=== PATIENT | female | born 1950 | race Caucasian/White ===

== ENCOUNTER 2017-11-24 09:52 | Inpatient (IN) | payer MEDICARE ==
[~2017-11-24] VITALS: Ht 149.9 cm; Wt 71.5 kg
[2017-11-24 09:54] VITALS: BP 106/68; PULSE 115; RESP 20; TEMP 98.3; O2SAT 98
[2017-11-24] MEDS ORDERED: ASPI-516 CHEW (10:29)
[2017-11-24 10:36] VITALS: BP 128/65; PULSE 112; RESP 18; O2SAT 96
[2017-11-24 10:38] VITALS: RESP 18; O2SAT 96
--- NOTE | 2017-11-24 10:41 | PD ---
HPI Chief Complaint: GI Complaint Time Seen by Provider: 10:15 Travel History International Travel<30 days: No Contact w/Intl Traveler<30days: No Traveled to known affect area: No History of Present Illness HPI The patient is a 67-year-old female who presents emergency department for abdominal pain and distention. The patient notes increasing abdominal pain and distention has been ongoing for several months, worse in the last 3 weeks. The patient saw her primary physician in [place] who is going to perform an outpatient ultrasound. However, the patient then went to [place] to have her power turned back on, her symptoms got worse, she flew to [place], [place]. She complains of increasing abdominal pain and distention, has been moving her bowels normally. She denies any known history of liver problem, states she had hepatitis as a child that resolved. She denies any known history of anasarca or previous effusions on the abdomen. She denies any swelling of the arms or legs. She denies any fever, chills, or sweats. The patient has had a previous cholecystectomy and part of her cervix removed as well as a lung surgery to remove a nodule that was noncancerous. She does complain of mild nausea and decreased appetite, does have a history of hiatal hernia. She does not have a local primary physician. [facility] Past Medical History Narrative Medical Lung nodule, history of hiatal hernia Respiratory: Yes ?: Not Past Surgical History Narrative Surgical Cholecystectomy Social History Alcohol Use: No Tobacco Use: No Substance Use: No Allergies-Medications (Allergen,Severity, Reaction): Coded Allergies: No Known Allergies (Unverified , 11/24/17) Reported Meds & Prescriptions Reported Meds & Active Scripts Active Reported Aspirin 81 Mg Chew 81 Mg CHEW DAILY Review of Systems Except as stated in HPI: all other systems reviewed are Neg General / Constitutional: No: Fever, Chills Cardiovascular: No: Chest Pain or Discomfort Respiratory: No: Shortness of Breath Gastrointestinal: Positive: Nausea, Abdominal Pain, Loss of Appetite, No: Vomiting, Diarrhea Physical Exam Narrative GENERAL: Awake, alert, pleasant 67-year-old female who appears her stated age is in no acute respiratory distress. SKIN: Focused skin assessment warm/dry. HEAD: Atraumatic. Normocephalic. EYES: Pupils equal and round. No scleral icterus. No injection or drainage. ENT: No nasal bleeding or discharge. Mucous membranes pink and moist. NECK: Trachea midline. No JVD. CARDIOVASCULAR: Regular rate and rhythm. No murmur appreciated. RESPIRATORY: No accessory muscle use. Clear to auscultation. Breath sounds equal bilaterally. GASTROINTESTINAL: Abdomen distended with visible abdominal veins noted. Slightly enlarged right liver border. MUSCULOSKELETAL: No obvious deformities. No clubbing. No cyanosis. No edema. NEUROLOGICAL: Awake and alert. No obvious cranial nerve deficits. Motor grossly within normal limits. Normal speech. PSYCHIATRIC: Appropriate mood and affect; insight and judgment normal. Data Data Last Documented VS Vital Signs Date Time Temp Pulse Resp B/P (MAP) Pulse Ox O2 Delivery O2 Flow Rate FiO2 11/24/17 12:38 113 18 111/59 (76) 96 Room Air 11/24/17 09:54 98.3 Orders Orders Complete Blood Count With Diff (11/24/17 10:31) Comprehensive Metabolic Panel (11/24/17 10:31) Lipase (11/24/17 10:31) Lactic Acid (11/24/17 10:31) Prothrombin Time / Inr (Pt) (11/24/17 10:31) Act Partial Throm Time (Ptt) (11/24/17 10:31) Urinalysis - C+S If Indicated (11/24/17 10:31) Ct Abd/Pel W/O Iv Contrast (11/24/17 10:31) Iv Access Insert/Monitor (11/24/17 10:31) Ecg Monitoring (11/24/17 10:31) Oximetry (11/24/17 10:31) Sodium Chloride 0.9% Flush (Ns Flush) (11/24/17 10:45) Chest, Single Ap (11/24/17 10:31) Morphine Inj (Morphine Inj) (11/24/17 12:45) Ondansetron Inj (Zofran Inj) (11/24/17 12:45) Sodium Chlor 0.9% 1000 Ml Inj (Ns 1000 M (11/24/17 12:45) (Hub Use Only)Inp Phy Cons/Ref (11/24/17 ) Admit Order (Ed Use Only) (11/24/17 12:52) Labs Laboratory Tests Test 11/24/17 10:45 White Blood Count 14.6 TH/MM3 Red Blood Count 4.16 MIL/MM3 Hemoglobin 12.8 GM/DL Hematocrit 36.9 % Mean Corpuscular Volume 88.7 FL Mean Corpuscular Hemoglobin 30.6 PG Mean Corpuscular Hemoglobin Concent 34.6 % Red Cell Distribution Width 12.6 % Platelet Count 588 TH/MM3 Mean Platelet Volume 7.3 FL Neutrophils (%) (Auto) 81.1 % Lymphocytes (%) (Auto) 8.8 % Monocytes (%) (Auto) 9.6 % Eosinophils (%) (Auto) 0.2 % Basophils (%) (Auto) 0.3 % Neutrophils # (Auto) 11.8 TH/MM3 Lymphocytes # (Auto) 1.3 TH/MM3 Monocytes # (Auto) 1.4 TH/MM3 Eosinophils # (Auto) 0.0 TH/MM3 Basophils # (Auto) 0.0 TH/MM3 CBC Comment DIFF FINAL Differential Comment Blood Urea Nitrogen 44 MG/DL Creatinine 2.55 MG/DL Random Glucose 120 MG/DL Total Protein 6.3 GM/DL Albumin 2.3 GM/DL Calcium Level 8.3 MG/DL Alkaline Phosphatase 101 U/L Aspartate Amino Transf (AST/SGOT) 84 U/L Alanine Aminotransferase (ALT/SGPT) 57 U/L Total Bilirubin 0.4 MG/DL Sodium Level 135 MEQ/L Potassium Level 4.6 MEQ/L Chloride Level 101 MEQ/L Carbon Dioxide Level 22.2 MEQ/L Anion Gap 12 MEQ/L Estimat Glomerular Filtration Rate 19 ML/MIN Lactic Acid Level 1.2 mmol/L Lipase 83 U/L MDM Medical Decision Making Medical Screen Exam Complete: Yes Emergency Medical Condition: Yes Medical Record Reviewed: Yes Interpretation(s) Last Impressions Chest X-Ray 11/24/17 1031 Signed Impressions: Service Date/Time: Friday, November 24, 2017 10:41 - CONCLUSION: Blunting of the right costophrenic angle either related to a tiny effusion or pleural/parenchymal scarring. No acute infiltrate. Cody Doyle Jr., MD Abdomen/Pelvis CT 11/24/17 1031 Signed Impressions: Service Date/Time: Friday, November 24, 2017 11:03 - CONCLUSION: 1. Findings worrisome for metastatic pancreatic cancer. There is limited evaluation due to lack of IV contrast on this exam. The patient needs an anatomical study with IV contrast utilizing CT technique or MRI. There is an approximate 4 cm mass felt present within the pancreatic body/tail with metastatic lesions to the liver and carcinomatosis. Moderate amount of ascites noted. Cody Doyle Jr., MD Laboratory Tests Test 11/24/17 10:45 White Blood Count 14.6 TH/MM3 Red Blood Count 4.16 MIL/MM3 Hemoglobin 12.8 GM/DL Hematocrit 36.9 % Mean Corpuscular Volume 88.7 FL Mean Corpuscular Hemoglobin 30.6 PG Mean Corpuscular Hemoglobin Concent 34.6 % Red Cell Distribution Width 12.6 % Platelet Count 588 TH/MM3 Mean Platelet Volume 7.3 FL Neutrophils (%) (Auto) 81.1 % Lymphocytes (%) (Auto) 8.8 % Monocytes (%) (Auto) 9.6 % Eosinophils (%) (Auto) 0.2 % Basophils (%) (Auto) 0.3 % Neutrophils # (Auto) 11.8 TH/MM3 Lymphocytes # (Auto) 1.3 TH/MM3 Monocytes # (Auto) 1.4 TH/MM3 Eosinophils # (Auto) 0.0 TH/MM3 Basophils # (Auto) 0.0 TH/MM3 CBC Comment DIFF FINAL Differential Comment Blood Urea Nitrogen 44 MG/DL Creatinine 2.55 MG/DL Random Glucose 120 MG/DL Total Protein 6.3 GM/DL Albumin 2.3 GM/DL Calcium Level 8.3 MG/DL Alkaline Phosphatase 101 U/L Aspartate Amino Transf (AST/SGOT) 84 U/L Alanine Aminotransferase (ALT/SGPT) 57 U/L Total Bilirubin 0.4 MG/DL Sodium Level 135 MEQ/L Potassium Level 4.6 MEQ/L Chloride Level 101 MEQ/L Carbon Dioxide Level 22.2 MEQ/L Anion Gap 12 MEQ/L Estimat Glomerular Filtration Rate 19 ML/MIN Lactic Acid Level 1.2 mmol/L Lipase 83 U/L Differential Diagnosis Differential diagnosis includes anasarca, liver failure, ascites, hepatitis, small bowel obstruction, partial small bowel obstruction. Narrative Course IV was established, labs are drawn and sent, and the patient was placed on cardiac telemetry monitoring and continuous pulse oximetry monitoring. CT of the abdomen and pelvis was performed. The patient declined pain medication. Albumin level was sent to lab. CT of the abdomen and pelvis reveals what appears to be a pancreatic mass with metastasis. The patient's creatinine is 2.55 she does not know the baseline. The patient does have some ascites with possible metastatic cancer, distended abdomen, and poor nutritional intake. The patient will require admission, most likely will need repeat CT of the abdomen and pelvis with IV contrast and then possible biopsy with IV hydration. The on-call medical service was paged for admission. Physician Communication Physician Communication The on-call hospitalist service was paged for admission. I discussed the patient with Dr. Michelle who agrees with admission. Diagnosis Primary Impression: Abdominal pain Qualified Codes: R10.84 - Generalized abdominal pain Additional Impressions: Ascites Qualified Codes: R18.0 - Malignant ascites Acute kidney injury Admitting Information Admitting Physician Requests: Admit Condition: Stable Moises Medina MD Nov 24, 2017 10:41
[2017-11-24] MEDS ORDERED: SODIUM CHLORIDE 0.9% FLUSH 10 ML FLUSH IV FLUSH PRN ×2 (10:45→13:00)
--- NOTE | 2017-11-24 11:00 | RADRPT ---
EXAM DATE/TIME: 11/24/2017 10:41 [facility] COMPARISON: No previous studies available for comparison. INDICATIONS : Short of breath, discomfort in chest and abdomen. Entire abdomen has been swollen and distended for s everal weeks making it difficult to breath MEDICAL HISTORY : None. SURGICAL HISTORY : benign nodule removed from right lung in 2011 ENCOUNTER: Initial ACUITY: 3 weeks PAIN SCORE: 7/10 LOCATION: Bilateral chest FINDINGS: A single portable frontal view the chest shows blunting of the right costophrenic angle. No infiltrat es or effusions on the left. No infiltrate on the right. Heart normal size. The degenerative thoracic spine. Cervical spinal fusion plate. CONCLUSION: Blunting of the right costophrenic angle either related to a tiny effusion or pleural/parenchymal sca rring. No acute infiltrate. Cody Doyle Jr., MD on November 24, 2017 at 10:57 Board Certified Radiologist. This report was verified electronically.
[2017-11-24 11:04] LABS: AUTOMATED NEUTROPHIL # 11.8 TH/MM3 (1.8-7.7); BASOPHIL % 0.3 % (0.0-2.0); EOSINOPHIL % 0.2 % (0.0-4.0); HEMATOCRIT 36.9 % (35.0-46.0); HEMOGLOBIN 12.8 GM/DL (11.6-15.3); LYMPH % 8.8 % (9.0-44.0); LYMPHOCYTE # 1.3 TH/MM3 (1.0-4.8); MEAN CELL VOLUME 88.7 FL (80.0-100.0); MEAN CORPUSCULAR HEMOGLOBIN 30.6 PG (27.0-34.0); MEAN CORPUSCULAR HGB CONC 34.6 % (32.0-36.0); MEAN PLATELET VOLUME 7.3 FL (7.0-11.0); MONO % 9.6 % (0.0-8.0); MONOCYTE # 1.4 TH/MM3 (0-0.9); NEUT % 81.1 % (16.0-70.0); PLATELET COUNT 588 TH/MM3 (150-450); RED BLOOD COUNT 4.16 MIL/MM3 (4.00-5.30); RED CELL DISTRIBUTION WIDTH 12.6 % (11.6-17.2); WHITE BLOOD COUNT 14.6 TH/MM3 (4.0-11.0)
[2017-11-24 11:24] LABS: ALBUMIN 2.3 GM/DL (3.4-5.0); ALT (GPT) 57 U/L (10-53); AST (GOT) 84 U/L (15-37); BICARBONATE 22.2 MEQ/L (21.0-32.0); BLOOD UREA NITROGEN 44 MG/DL (7-18); CALCIUM 8.3 MG/DL (8.5-10.1); CHLORIDE 101 MEQ/L (98-107); CREATININE 2.55 MG/DL (0.50-1.00); GLOMERULAR FILTRATION RATE 19 ML/MIN (>89); GLUCOSE,RANDOM 120 MG/DL (74-106); SODIUM (NA) 135 MEQ/L (136-145)
[2017-11-24 11:27] LABS: ALKALINE PHOSPHATASE 101 U/L (45-117); TOTAL BILIRUBIN ADULT 0.4 MG/DL (0.2-1.0); TOTAL PROTEIN 6.3 GM/DL (6.4-8.2)
--- NOTE | 2017-11-24 11:27 | RADRPT ---
EXAM DATE/TIME: 11/24/2017 11:03 [facility] COMPARISON: No previous studies available for comparison. INDICATIONS : Abdominal pain with increasing distention. ORAL CONTRAST: No oral contrast ingested. RADIATION DOSE: 7.64 CTDIvol (mGy) MEDICAL HISTORY : None SURGICAL HISTORY : Cholecystectomy. ENCOUNTER: Initial ACUITY: 2 months PAIN SCALE: 6/10 LOCATION: Bilateral abdomen TECHNIQUE: Volumetric scanning of the abdomen and pelvis was performed. Using automated exposure control and ad justment of the mA and/or kV according to patient size, radiation dose was kept as low as reasonably achievable to obtain optimal diagnostic quality images. DICOM format image data is available electro nically for review and comparison. FINDINGS: LOWER LUNGS: Postsurgical changes involving the right lung base. Lungs are clear without infiltrate or effusion. LIVER: The liver has a heterogeneous background. Multiple low-density lesions are seen involving the right l obe. The largest involves segment 7 and measures 2.6 cm. These are not consistent with simple cysts. The gallbladder surgically absent. SPLEEN: Normal size without lesion. PANCREAS: The pancreas is abnormal. There is dilatation of the peripheral duct reaching a maximum diameter of 1 cm. This quickly tapers within the region of the junction of the body and tail with a suspected mass measuring 4.3 x 2.7 cm. This is difficult to accurately measure given its isodensity to the pancreas on this unenhanced study. KIDNEYS: Normal in size and shape. There is no mass, stone, or hydronephrosis. ADRENAL GLANDS: Within normal limits. VASCULAR: Diffuse calcified plaque throughout the aorta and inflow vessels. No aneurysmal change observed. BOWEL/MESENTERY: Markedly abnormal omentum with scattered areas of high density suggesting carcinomatosis. There is mo derate ascitic fluid seen throughout the abdomen. No dilated loops of bowel observed. No free air see n. ABDOMINAL WALL: Within normal limits. RETROPERITONEUM: There is no lymphadenopathy. BLADDER: No wall thickening or mass. REPRODUCTIVE: Within normal limits. INGUINAL: There is no lymphadenopathy or hernia. MUSCULOSKELETAL: Orthopedic hardware involving L4-L5 with posterior fixation. No lytic or blastic lesions observed. CONCLUSION: 1. Findings worrisome for metastatic pancreatic cancer. There is limited evaluation due to lack of IV contrast on this exam. The patient needs an anatomical study with IV contrast utilizing CT technique or MRI. There is an approximate 4 cm mass felt present within the pancreatic body/tail with metastat ic lesions to the liver and carcinomatosis. Moderate amount of ascites noted. Cody Doyle Jr., MD on November 24, 2017 at 11:18 Board Certified Radiologist. This report was verified electronically.
[2017-11-24 12:38] VITALS: BP 111/59; PULSE 113; RESP 18; O2SAT 96
[2017-11-24] MEDS ORDERED: ONDANSETRON HCL 4 MG/2 ML VIAL IV PUSH ONE (12:45)
[2017-11-24] MEDS ORDERED: MORPHINE SULFATE 4 MG/ML INJ IV PUSH ONE (12:45)
[2017-11-24] MEDS ORDERED: SODIUM CHLOR 0.9% 1000 ML INJ 1,000 ML IV ONE (12:45)
[2017-11-24] MEDS: SODIUM CHLORIDE 0.9% FLUSH 10 ML FLUSH IV FLUSH SCH ×2 (13:00→20:36)
[2017-11-24] MEDS ORDERED: LACTULOSE SYRUP 20 GM/30 ML CUP PO PRN (13:00)
[2017-11-24] MEDS ORDERED: BISACODYL 10 MG SUPP RECTAL PRN (13:00)
[2017-11-24] MEDS: DOCUSATE SODIUM 50 MG/SENNA 8.6 MG TAB PO SCH ×2 (13:00→20:36)
[2017-11-24] MEDS ORDERED: NALOXONE HCL 0.4 MG/ML AMP IV PUSH PRN (13:00)
[2017-11-24] MEDS ORDERED: SENNOSIDES 8.6 MG TAB PO PRN (13:00)
[2017-11-24] MEDS ORDERED: MAGNESIUM HYDROXIDE SUSP 30 ML CUP PO PRN (13:00)
[2017-11-24] MEDS ORDERED: TEMAZEPAM 15 MG CAP PO PRN (13:00)
[2017-11-24 13:09] LABS: PROTHROMBIN TIME - PATIENT 10.3 SEC (9.8-11.6)
--- NOTE | 2017-11-24 14:35 | PD.CONS ---
HPI History of Present Illness This is a 67 year old F who presented to the emergency department today with complaints of abdominal pain and distention. Pt lives in [place] but has recently been in [place] on vacation, she is now in [place] because she felt she was too sick to make it home to [place]. Abdominal distension has been growing over the past few months, but she states more noticeably over the past three weeks. Associated with diffuse abdominal pain, she is unable to localize pain more so in one area. Some nausea, denies emesis. Also having some dysphagia, feels like her foods are getting stuck. Reports decreased appetite, therefore states she has had a decrease in BMs. She does have a GI doctor she follow back home, last EGD in August revealed hiatal hernia, otherwise normal. Last colonoscopy in 2013, normal, however she does report history of polyps. Labs done in the ER reveal transaminitis. CT abdomen and pelvis W/O contrast (11/24) --> Findings worrisome for metastatic pancreatic cancer. There is limited evaluation due to lack of IV contrast on this exam. The patient needs an anatomical study with IV contrast utilizing CT technique or MRI. there is an approximate 4 cm mass felt present within the pancreatic body/tail with metastatic lesions to the liver and carcinomatosis. Moderate amount of ascites noted. Of note, pt with low GFR, denies history of impaired renal function. She denies history of pancreatic disease. Does report history of hepatitis as a child, but states it cleared. Denies family history significant for cancer. Denies ETOH. Previous smoker, quit 6-7 years ago. (Brooke Xavier) PFSH Past Medical History Lung nodule Past Surgical History Cholecystectomy EGD Colonoscopy R VATS wedge resection L breast (Brooke Xavier) Coded Allergies: No Known Allergies (Unverified , 11/24/17) Social History Denies ETOH Quit smoking 6-7 years ago (Brooke Xavier) Review of Systems Gastrointestinal: COMPLAINS OF: Abdominal pain, Nausea, Difficulty Swallowing, Swelling of Abdomen, DENIES: Black stools, Bloody stools, Constipation, Diarrhea , Vomiting, Odynophagia, Heartburn, Hematemesis (Brooke Xavier) GI Exam Vitals I&O Vital Signs Date Time Temp Pulse Resp B/P (MAP) Pulse Ox O2 Delivery O2 Flow Rate FiO2 11/24/17 12:38 113 18 111/59 (76) 96 Room Air 11/24/17 10:38 18 96 Room Air 11/24/17 10:36 112 18 128/65 (86) 96 Room Air 11/24/17 10:28 18 11/24/17 09:54 98.3 115 20 106/68 (81) 98 Room Air Imaging Last Impressions Chest X-Ray 11/24/17 1031 Signed Impressions: Service Date/Time: Friday, November 24, 2017 10:41 - CONCLUSION: Blunting of the right costophrenic angle either related to a tiny effusion or pleural/parenchymal scarring. No acute infiltrate. Cody Doyle Jr., MD Abdomen/Pelvis CT 11/24/17 1031 Signed Impressions: Service Date/Time: Friday, November 24, 2017 11:03 - CONCLUSION: 1. Findings worrisome for metastatic pancreatic cancer. There is limited evaluation due to lack of IV contrast on this exam. The patient needs an anatomical study with IV contrast utilizing CT technique or MRI. There is an approximate 4 cm mass felt present within the pancreatic body/tail with metastatic lesions to the liver and carcinomatosis. Moderate amount of ascites noted. Cody Doyle Jr., MD Laboratory Test 11/24/17 10:45 11/24/17 12:48 White Blood Count 14.6 TH/MM3 Red Blood Count 4.16 MIL/MM3 Hemoglobin 12.8 GM/DL Hematocrit 36.9 % Mean Corpuscular Volume 88.7 FL Mean Corpuscular Hemoglobin 30.6 PG Mean Corpuscular Hemoglobin Concent 34.6 % Red Cell Distribution Width 12.6 % Platelet Count 588 TH/MM3 Mean Platelet Volume 7.3 FL Neutrophils (%) (Auto) 81.1 % Lymphocytes (%) (Auto) 8.8 % Monocytes (%) (Auto) 9.6 % Eosinophils (%) (Auto) 0.2 % Basophils (%) (Auto) 0.3 % Neutrophils # (Auto) 11.8 TH/MM3 Lymphocytes # (Auto) 1.3 TH/MM3 Monocytes # (Auto) 1.4 TH/MM3 Eosinophils # (Auto) 0.0 TH/MM3 Basophils # (Auto) 0.0 TH/MM3 CBC Comment DIFF FINAL Differential Comment Blood Urea Nitrogen 44 MG/DL Creatinine 2.55 MG/DL Random Glucose 120 MG/DL Total Protein 6.3 GM/DL Albumin 2.3 GM/DL Calcium Level 8.3 MG/DL Alkaline Phosphatase 101 U/L Aspartate Amino Transf (AST/SGOT) 84 U/L Alanine Aminotransferase (ALT/SGPT) 57 U/L Total Bilirubin 0.4 MG/DL Sodium Level 135 MEQ/L Potassium Level 4.6 MEQ/L Chloride Level 101 MEQ/L Carbon Dioxide Level 22.2 MEQ/L Anion Gap 12 MEQ/L Estimat Glomerular Filtration Rate 19 ML/MIN Lactic Acid Level 1.2 mmol/L Lipase 83 U/L Prothrombin Time 10.3 SEC Prothromb Time International Ratio 1.0 RATIO Activated Partial Thromboplast Time 27.0 SEC Physical Examination HEENT: Normocephalic; atraumatic CHEST: Even/unlabored CARDIAC: RRR ABDOMEN: Distended, firm, nontender, bowel sounds active EXTREMITIES: No clubbing, cyanosis, or edema. SKIN: Normal; no rash; no jaundice. MECHANIST: No focal deficits; alert and oriented times three. (Brooke Xavier COORDINATOR OF PLACEMENT) Assessment and Plan Plan Assessment: - Abnormal CT (abdomen and pelvis W/O IV contrast) findings Findings worrisome for metastatic pancreatic cancer. There is limited evaluation due to lack of IV contrast on this exam. The patient needs an anatomical study with IV contrast utilizing CT technique or MRI. there is an approximate 4 cm mass felt present within the pancreatic body/ tail with metastatic lesions to the liver and carcinomatosis. Moderate amount of ascites noted. Pt denies history of liver or pancreatic disease. Denies family history of cancer. EUS with FNA to evaluate. Tumor markers. - Ascites- likely secondary to metastasis- abdominal distention over the fast few months, worse over the past few weeks - Transaminitis- likely from metastasis. Pt denies history of ETOH. Reports hepatitis as a child, but states it cleared. - FAY- GFR-19 pt denies history of impaire renal function Last EGD in August --> Hiatal hernia, otherwise normal Last colonoscopy in 2013- states normal exam but has personal history of colon polyps Plan: EUS with FNA Obtain consent NPO after MN Tumor markers Paracentesis to be addressed after EUS Oncology consult once cancer is confirmed Supportive care Further recommendations to follow based on results of above Pt has been seen and examined by myself and Dr. Santiago and this note is written on his behalf (Brooke Xavier) Physician Comments Patient seen and examined Agree with above Continue with current supportive care Monitor labs Plan for an EUS tomorrow with FNA (Bayron Santiago MD) Brooke Xavier Nov 24, 2017 14:35 Bayron Santiago MD Nov 24, 2017 18:37
[2017-11-24 14:44] LABS: BACTERIA, URINE RARE /hpf; BLOOD, URINE SMALL (NEG); GLUCOSE,URINE NEG (NEG); HYALINE CAST, URINE 84 /lpf (RARE); KETONE, URINE NEG (NEG); MUCUS URINE FEW /lpf (OCC); NITRITE,URINE NEG (NEG); SQUAMOUS EPITHELIAL CELL URINE 5 /hpf (0-5); TRANSITIONAL EPI CELLS, URINE <1 /hpf; URINE COLOR YELLOW (YELLW/STRAW); URINE LEUKOCYTE ESTERASE SMALL (NEG); WHITE BLOOD CELL CLUMPS FEW
[2017-11-24 14:47] LABS: BILIRUBIN, URINE NEG (NEG)
--- NOTE | 2017-11-24 15:52 | HHI.HP ---
HPI Service [facility] Hospitalists Primary Care Physician Non-Staff Admission Diagnosis probable metastatic pancreatic cancer, acute kidney injury, anasarca Diagnoses: (1) Pancreatic mass (2) Ascites Travel History International Travel<30 Days: No Contact w/Intl Traveler <30 Da: No Traveled to Known Affected Are: No History of Present Illness 67F presents to [facility] today following 3 weeks of marked worsening in her abdominal fullness, associated with intermittent nausea (no vomiting), and loss of appetite. Up until recently she has been spending the winter in [place] where she underwent a work up for non-acute abdominal swelling that was blamed on her hiatal hernia. Prior to that she had no abdominal discomfort. She had PNA last summer and underwent a PET scan to rule out recurrence of a lung granuloma (past hx of), the PET scan did not show any masses. She has a history of hepatitis that occurred when she was 20 years old, though she does not recall which type it was. Family history is positive for renal cancer in her father. Social history is remarkable for approximately 40 pack years of smoking. Review of Systems Constitutional: DENIES: Fever, Chills Eyes: DENIES: Blurred vision, Vision loss, Photosensitivity Ears, nose, mouth, throat: DENIES: Hearing loss, Vertigo, Throat pain, Epistaxis Respiratory: DENIES: Apneas, Cough, Wheezing, Hemoptysis Cardiovascular: DENIES: Chest pain, Palpitations, Syncope Gastrointestinal: COMPLAINS OF: Abdominal pain, Constipation, Nausea, Anorexia , DENIES: Black stools, Bloody stools, Diarrhea, Vomiting, Difficulty Swallowing Integumentary: DENIES: Abnormal pigmentation, Pruritus, Rash Neurologic: DENIES: Abnormal gait, Headache, Localized weakness, Paresthesias, Seizures, Speech Problems, Tremor, Poor Balance Psychiatric: DENIES: Anxiety, Confusion, Mood changes, Depression Past Family Social History Past Medical History Lung nodule (granuloma) Hepatitis 1970 Past Surgical History Left breast surgery 1983 D&C 1998 Anterior cervical discectomy and fusion 1998 Laminectomy L4-5 1998 Cholecystectomy 2005 Shingles 2009 Resection of lung granuloma 2010 Allergies: Coded Allergies: No Known Allergies (Unverified , 11/24/17) Family History Alzheimer's Disease (father) Renal Cancer (father) Social History Denies ETOH Quit smoking 2011, 40 year pack history Physical Exam Vital Signs Vital Signs Date Time Temp Pulse Resp B/P (MAP) Pulse Ox O2 Delivery O2 Flow Rate FiO2 11/24/17 12:38 113 18 111/59 (76) 96 Room Air 11/24/17 10:38 18 96 Room Air 11/24/17 10:36 112 18 128/65 (86) 96 Room Air 11/24/17 10:28 18 11/24/17 09:54 98.3 115 20 106/68 (81) 98 Room Air Physical Exam GENERAL: This is a well-nourished, well-developed patient, who is uncomfortable due to a fluid filled abdomen SKIN: No rashes, ecchymoses or lesions. Cool and dry. HEAD: Atraumatic. Normocephalic. No temporal or scalp tenderness. EYES: Pupils equal round and reactive. Extraocular motions intact. No scleral icterus. No injection or drainage. ENT: Nose without bleeding, purulent drainage or septal hematoma. Throat without erythema, tonsillar hypertrophy or exudate. Uvula midline. Airway patent. NECK: Trachea midline. No JVD or lymphadenopathy. Supple, nontender, no meningeal signs. CARDIOVASCULAR: Regular rate and rhythm without murmurs, gallops, or rubs. RESPIRATORY: Bibasilar atelectasis, otherwise clear lung damian GASTROINTESTINAL: Abdomen full firm, dull to percussion, fluid filled, caput medusa MUSCULOSKELETAL: Extremities without clubbing, cyanosis, or edema. No joint tenderness, effusion, or extremity edema noted. No calf tenderness. Negative Homans sign bilaterally. NEUROLOGICAL: Awake and alert. Cranial nerves II through XII intact. Motor and sensory grossly within normal limits. Five out of 5 muscle strength in all muscle groups. Normal speech. Laboratory Laboratory Tests Test 11/24/17 10:45 11/24/17 12:48 11/24/17 14:00 White Blood Count 14.6 Red Blood Count 4.16 Hemoglobin 12.8 Hematocrit 36.9 Mean Corpuscular Volume 88.7 Mean Corpuscular Hemoglobin 30.6 Mean Corpuscular Hemoglobin Concent 34.6 Red Cell Distribution Width 12.6 Platelet Count 588 Mean Platelet Volume 7.3 Neutrophils (%) (Auto) 81.1 Lymphocytes (%) (Auto) 8.8 Monocytes (%) (Auto) 9.6 Eosinophils (%) (Auto) 0.2 Basophils (%) (Auto) 0.3 Neutrophils # (Auto) 11.8 Lymphocytes # (Auto) 1.3 Monocytes # (Auto) 1.4 Eosinophils # (Auto) 0.0 Basophils # (Auto) 0.0 CBC Comment DIFF FINAL Differential Comment Blood Urea Nitrogen 44 Creatinine 2.55 Random Glucose 120 Total Protein 6.3 Albumin 2.3 Calcium Level 8.3 Alkaline Phosphatase 101 Aspartate Amino Transf (AST/SGOT) 84 Alanine Aminotransferase (ALT/SGPT) 57 Total Bilirubin 0.4 Sodium Level 135 Potassium Level 4.6 Chloride Level 101 Carbon Dioxide Level 22.2 Anion Gap 12 Estimat Glomerular Filtration Rate 19 Lactic Acid Level 1.2 Lipase 83 Prothrombin Time 10.3 Prothromb Time International Ratio 1.0 Activated Partial Thromboplast Time 27.0 Urine Color YELLOW Urine Turbidity HAZY Urine pH 5.0 Urine Specific [place] 1.020 Urine Protein 30 Urine Glucose (UA) NEG Urine Ketones NEG Urine Occult Blood SMALL Urine Nitrite NEG Urine Bilirubin NEG Urine Urobilinogen LESS THAN 2.0 Urine Leukocyte Esterase SMALL Urine RBC 5 Urine WBC 40 Urine WBC Clumps FEW Urine Squamous Epithelial Cells 5 Urine Transitional Epithelial Cells <1 Urine Bacteria RARE Urine Hyaline Casts 84 Urine Mucus FEW Microscopic Urinalysis Comment CULTURE INDICATED Date/Time Source Procedure Growth Status 11/24/17 14:00 Urine Random Urine Urine Culture Pending Received Result Diagram: 11/24/17 1045 11/24/17 1045 Imaging Last 24 hours Impressions Chest X-Ray 11/24/17 1031 Signed Impressions: Service Date/Time: Friday, November 24, 2017 10:41 - CONCLUSION: Blunting of the right costophrenic angle either related to a tiny effusion or pleural/parenchymal scarring. No acute infiltrate. Cody Doyle Jr., MD Abdomen/Pelvis CT 11/24/17 1031 Signed Impressions: Service Date/Time: Friday, November 24, 2017 11:03 - CONCLUSION: 1. Findings worrisome for metastatic pancreatic cancer. There is limited evaluation due to lack of IV contrast on this exam. The patient needs an anatomical study with IV contrast utilizing CT technique or MRI. There is an approximate 4 cm mass felt present within the pancreatic body/tail with metastatic lesions to the liver and carcinomatosis. Moderate amount of ascites noted. Cody Doyle Jr., MD Caprini VTE Risk Assessment Caprini VTE Risk Assessment: Mod/High Risk (score >= 2) Caprini Risk Assessment Model Point Value = 1 Point Value = 2 Point Value = 3 Point Value = 5 Age 41-60 Minor surgery BMI > 25 kg/m2 Swollen legs Varicose veins or History of unexplained or recurrent spontaneous Oral contraceptives or hormone replacement Sepsis (< 1 month) Serious lung disease, including pneumonia (< 1 month) Abnormal pulmonary function Acute myocardial infarction Congestive heart failure (< 1 month) History of inflammatory bowel disease Medical patient at bed rest Age 61-74 Arthroscopic surgery Major open surgery (> 45 min) Laparoscopic surgery (> 45 min) Malignancy Confined to bed (> 72 hours) Immobilizing plaster cast Central venous access Age >= 75 History of VTE Family history of VTE Factor V Leiden Prothrombin [id number] Lupus anticoagulant Anticardiolipin antibodies Elevated serum homocysteine Heparin-induced thrombocytopenia Other congenital or acquired thrombophilia Stroke (< 1 month) Elective arthroplasty Hip, pelvis, or leg fracture Acute spinal cord injury (< 1 month) Prophylaxis Regimen Total Risk Factor Score Risk Level Prophylaxis Regimen 0-1 Low Early ambulation 2 Moderate Order ONE of the following: *Sequential Compression Device (SCD) *Heparin 5000 units SQ BID 3-4 Higher Order ONE of the following medications: *Heparin 5000 units SQ TID *Enoxaparin/Lovenox 40 mg SQ daily (WT < 150 kg, CrCl > 30 mL/min) *Enoxaparin/Lovenox 30 mg SQ daily (WT < 150 kg, CrCl > 10-29 mL/min) *Enoxaparin/Lovenox 30 mg SQ BID (WT < 150 kg, CrCl > 30 mL/min) AND/OR *Sequential Compression Device (SCD) 5 or more Highest Order ONE of the following medications: *Heparin 5000 units SQ TID (Preferred with Epidurals) *Enoxaparin/Lovenox 40 mg SQ daily (WT < 150 kg, CrCl > 30 mL/min) *Enoxaparin/Lovenox 30 mg SQ daily (WT < 150 kg, CrCl > 10-29 mL/min) *Enoxaparin/Lovenox 30 mg SQ BID (WT < 150 kg, CrCl > 30 mL/min) AND *Sequential Compression Device (SCD) Assessment and Plan Problem List: (1) Pancreatic mass ICD Code: K86.9 - Disease of pancreas, unspecified (2) Acute kidney injury ICD Code: N17.9 - Acute kidney failure, unspecified Status: Acute (3) Ascites ICD Code: R18.8 - Other ascites Status: Acute (4) Abdominal pain ICD Code: R10.9 - Unspecified abdominal pain Status: Acute Assessment and Plan Pancreatic Mass CT Abdomen shows 4cm mass in body/tail of pancreas with spots on liver that seem solid (not cystic) Highly suspicious for pancreatic cancer Radiology recommended follow up study with MRI abdomen, which is ordered Oncology consulted to guide work up Ascites Firm dull fluid filled abdomen, subacute after 3 weeks onset Gastroenterology consulted to determine if paracentesis is warranted Acute Renal Dysfunction, Dehydration Creatinine 2.55 on admission IVF at this point would worsen ascites PO fluids encouraged Avoid nephrotoxins Will follow Creatinine Urinary Tract Infection Elevated WBC. UTI present on UA Start Rocephin Daily Leukocytosis Through to be due to UTI Will follow trend DVT Prophylaxis Anticoagulants held due to possibility of procedures [facility] Physician Certification 2 Midnight Certification Type: Admission for Inpatient Services Order for Inpatient Services The services are ordered in accordance with Medicare regulations or non- Medicare payer requirements, as applicable. In the case of services not specified as inpatient-only, they are appropriately provided as inpatient services in accordance with the 2-midnight benchmark. Estimated LOS (days): 6 days is the estimated time the patient will need to remain in the hospital, assuming treatment plan goals are met and no additional complications. Post-Hospital Plan: Home Problem Qualifiers (1) Ascites: Qualified Codes: R18.0 - Malignant ascites (2) Abdominal pain: Qualified Codes: R10.84 - Generalized abdominal pain Dustin Michelle MD Nov 24, 2017 15:52
--- NOTE | 2017-11-24 16:01 | RADRPT ---
EXAM DATE/TIME: 11/24/2017 15:27 [facility] COMPARISON: CT ABDOMEN & PELVIS W/O CONTRAST, November 24, 2017, 11:03. INDICATIONS : Pancreatic mass. MEDICAL HISTORY : Lung nodule. Hiatal hernia. SURGICAL HISTORY : Fusion, cervical. Fusion, lumbar. Cholecystectomy. Left breast biopsy. Conization. Right lung resecti on. ENCOUNTER: Subsequent ACUITY: 3 weeks PAIN SCORE: 5/10 LOCATION: Abdomen. TECHNIQUE: Multiplanar, multisequence magnetic resonance imaging of the abdomen was performed without contrast. FINDINGS: Markedly abnormal study. Numerous metastases are seen throughout the liver parenchyma involving both the right and left lobes consistent with metastatic lesions. The largest lesion involves segment 7 an d measures 2.9 x 2.6 cm. No ductal dilatation observed. There is a pancreatic mass at the junction of the body and tail. It is limited in its evaluation without contrast. It is felt to measure 5.1 x 4.0 cm. There is ductal dilatation involving the peripheral pancreatic duct reaching a maximum diameter of 10 mm. Markedly abnormal omentum which is diffuse soft tissue thickening consistent with omental c aking. A moderate volume of ascitic fluid is seen throughout the abdomen. Ferromagnetic artifact in t he patient's orthopedic hardware obscures some of the retroperitoneum CONCLUSION: 1. Study is somewhat limited due to the lack of IV contrast. There is a 5.1 x 4.0 cm pancreatic mass with metastatic lesions to the liver as well as the omentum. A moderate volume of ascites is seen. Cody Doyle Jr., MD on November 24, 2017 at 15:53 Board Certified Radiologist. This report was verified electronically.
[2017-11-24] MEDS: cefTRIAXone INJ 1,000 MG in SODIUM CHLORIDE 0.9% INJ 100 ML IV SCH (17:17)
--- NOTE | 2017-11-24 19:47 | MB ---
cc: JACQUELINE MUNIZ MD DATE OF CONSULTATION 11/24/17 REASON FOR CONSULTATION Patient with findings of a large pancreatic mass, metastatic lesions to the liver and omentum. CHIEF COMPLAINT Abdominal fullness, early satiety. HISTORY OF PRESENT ILLNESS This is a 67 year old female with a past medical history of hepatitis, history of chronic back pain who recently returned from a trip from [place]. She had started to develop acute abdominal swelling over the past one month. She had become anorexic. In the emergency department, the patient underwent a CT of the abdomen and pelvis which showed a 4 cm mass in the pancreatic body and tail and there are metastatic lesions in the liver and concern for carcinomatosis in the abdomen. Abdominal ascites was also noted. She has undergone an abdominal MRI. Both of these studies were done without contrast. There is a 5.1 x 4 cm pancreatic mass with pancreatic lesions to the liver as well as omentum. On admission, the patient had leukocytosis with white blood cell count of 14.6 and mild thrombocytosis with platelet count of 588. Her creatinine was elevated to 2.55. Her liver functions are also elevated. AST is 84, ALT is 57. Albumin was low at 2.3. She states that overall she was in good health. She retired from a telephone company. She quit smoking in 2010. She has a 40 pack year smoking history. She does not drink alcohol. There is a family history of renal cancer, but no history of pancreatic cancer. She states that she had a bad pneumonia last summer while she was in [place]. She had a lung mass which was thought to be a granuloma, but she had a PET scan to better assess this and the PET scan was negative. REVIEW OF SYSTEMS A comprehensive review of systems was completed which is negative except as described in the History of Present Illness. PAST MEDICAL HISTORY 1. History of lung nodule 2. Hepatitis PAST SURGICAL HISTORY 1. Anterior cervical diskectomy and fusion 1998 2. Laminectomy L4-L5 in 1998 3. Cholecystectomy in 2004 4. Shingles 2009 5. Resection of lung granuloma in 2010 FAMILY HISTORY Significant for father had Alzheimer's disease, renal cancer in father. SOCIAL HISTORY She denies alcohol abuse. She smoking in 2010. She has a 40 pack year smoking history. No illicit drug use. She is retired. She used to work for a telephone company. MEDICATIONS 1. Rocephin 100 mg q 24 hrs 2. Restoril 15 mg by mouth qhs 3. Milk of Magnesia 30 mL by mouth q 12 hrs 4. Dulcolax 10 mg as needed 5. Morphine sulfate 4 mg IV q 3 hrs as needed ALLERGIES NO KNOWN DRUG ALLERGIES PHYSICAL EXAMINATION VITAL SIGNS: Blood pressure 111/59, pulse 100s, temperature is 98.3, O2 saturations are 96% on room air. GENERAL: Well-developed, well-nourished female in no apparent distress. HEENT: Pupils are equal, round, reactive to light. Extraocular movements are intact. No thrush. No lesions. NECK: Supple. No jugular venous distention. No bruit. No lymphadenopathy. CHEST: Clear to auscultation bilaterally CARDIAC: Tachycardic in the 90s, S1, S2. ABDOMEN: Soft, distended, positive fluid wave. Bowel sounds are hyperactive. EXTREMITIES: Without any cyanosis, clubbing or edema. SKIN: Without any petechiae or lesions. No bruises. NEUROLOGIC: No focal deficit. PSYCHIATRIC: Mood and affect are appropriate. LABORATORY DATA WBC 14.6, hemoglobin 12.8, MCV 88.7, platelet count 588. Serum chemistry - sodium 135, potassium 4.6, chloride 101, BUN 44, creatinine 2.55, GFR 19, calcium 8.3, total bilirubin 0.4. AST 84, ALT 57, alkaline phosphatase 101. Albumin 2.3. IMAGING STUDIES Reviewed in the electronic medical record. ASSESSMENT AND PLAN This is a 67 year old female who presents to the emergency department with progressive abdominal distention, anorexia and was found to have a pancreatic head mass along with metastatic lesions to the liver and also found to have carcinomatosis. 1. Pancreatic mass with liver lesions and carcinomatosis. This is highly suspicious for underlying pancreatic malignancy. She appears to have metastatic disease. Tumor markers are pending. We will need to obtain a biopsy of the pancreatic mass or the liver lesion. A paracentesis has also been ordered. This would help with identifying whether this is malignant effusion. However, we will need to obtain additional tissue to ascertain the origin of the tumor as well as any relevant molecular studies. We will ask interventional radiology for a CT guided biopsy of the pancreatic mass vs Liver lesion. If this is confirmed malignancy, this is advanced stage disease and treatment options will not be curative. She will need outpatient follow up with oncology. Systemic chemotherapy will be recommended. Discussed this with the patient at length. 2. Leukocytosis likely reactive. Rule out any underlying infection or abdominal ascites. I agree with antibiotics. 3. Thrombocytosis likely reactive. 4. Acute renal failure. Creatinine is 2.55. 5. Transaminitis. AST is 84, ALT is 57 likely from metastatic disease. Thank you for allowing me to participate in the care of this patient. I will continue to follow this patient along. MD ENRIQUE De Souza/ /6:33 PM /6:46 PM NIKI
[2017-11-24 20:00] VITALS: BP 123/69; PULSE 111; RESP 17; TEMP 96.4; O2SAT 91
[2017-11-24] MEDS: MORPHINE SULFATE 4 MG/ML INJ IV PUSH PRN ×2 (20:37→23:48)
[2017-11-25] VITALS: BP 120/46; PULSE 112; RESP 17; TEMP 96.7; O2SAT 92
[2017-11-25] MEDS ORDERED: LACTATED RINGER'S 1000 ML IV PRN (02:00)
[2017-11-25] MEDS: MORPHINE SULFATE 4 MG/ML INJ IV PUSH PRN ×4 (03:53→21:06)
[2017-11-25 08:00] VITALS: BP 90/54; PULSE 105; RESP 17; TEMP 96.8; O2SAT 95
[2017-11-25] MEDS: DOCUSATE SODIUM 50 MG/SENNA 8.6 MG TAB PO SCH ×2 (08:34→21:07)
[2017-11-25] MEDS: SODIUM CHLORIDE 0.9% FLUSH 10 ML FLUSH IV FLUSH SCH ×2 (08:35→21:07)
[2017-11-25 10:53] LABS: AUTOMATED NEUTROPHIL # 11.1 TH/MM3 (1.8-7.7); BASOPHIL % 0.2 % (0.0-2.0); EOSINOPHIL % 0.2 % (0.0-4.0); HEMATOCRIT 38.5 % (35.0-46.0); HEMOGLOBIN 12.7 GM/DL (11.6-15.3); LYMPH % 8.2 % (9.0-44.0); LYMPHOCYTE # 1.1 TH/MM3 (1.0-4.8); MEAN CELL VOLUME 90.4 FL (80.0-100.0); MEAN CORPUSCULAR HGB CONC 33.1 % (32.0-36.0); MEAN PLATELET VOLUME 7.2 FL (7.0-11.0); MONOCYTE # 1.2 TH/MM3 (0-0.9); NEUT % 82.4 % (16.0-70.0); PLATELET COUNT 663 TH/MM3 (150-450); RED BLOOD COUNT 4.25 MIL/MM3 (4.00-5.30); RED CELL DISTRIBUTION WIDTH 12.8 % (11.6-17.2); WHITE BLOOD COUNT 13.5 TH/MM3 (4.0-11.0)
[2017-11-25 11:10] LABS: ALBUMIN 2.3 GM/DL (3.4-5.0); AST (GOT) 90 U/L (15-37); BICARBONATE 20.7 MEQ/L (21.0-32.0); BLOOD UREA NITROGEN 54 MG/DL (7-18); CALCIUM 8.7 MG/DL (8.5-10.1); CHLORIDE 103 MEQ/L (98-107); CREATININE 1.99 MG/DL (0.50-1.00); GLOMERULAR FILTRATION RATE 25 ML/MIN (>89); GLUCOSE,RANDOM 86 MG/DL (74-106); SODIUM (NA) 137 MEQ/L (136-145)
[2017-11-25 11:14] LABS: ALKALINE PHOSPHATASE 108 U/L (45-117); ALT (GPT) 59 U/L (10-53); TOTAL BILIRUBIN ADULT 0.3 MG/DL (0.2-1.0); TOTAL PROTEIN 6.3 GM/DL (6.4-8.2)
[2017-11-25 11:42] LABS: CARCINOEMBRYONIC ANTIGEN 2.1 NG/ML (0.2-5.0)
[2017-11-25 12:00] VITALS: BP 90/55; PULSE 105; RESP 17; TEMP 96.9; O2SAT 95
[2017-11-25] MEDS ORDERED: LIDOCAINE HCL 1% PF 5 ML SYRINGE OTHER ONE (12:00)
[2017-11-25] MEDS ORDERED: PROPOFOL 200 MG/20 ML AMP IV ONE ×2 (12:00)
--- NOTE | 2017-11-25 14:40 | PD.PROCEDR ---
GI Procedure PROCEDURE PERFORMED EUS with FNA followed by EGD INDICATION FOR PROCEDURE Large upper abdominal mass PROCEDURE: The procedure, risks and benefits were discussed with Ms. Rivas and informed consent was obtained. Anesthesia sedated her with Diprivan. She was placed in the left lateral decubitus position. Endoscopic ultrasound: The Pentax videoscope was introduced through the oropharynx and advanced to the second portion of the duodenum. FINDINGS: There was a large branching mildly hypoechoic mass noted from the distal end of the esophagus through the hiatal hernia into the upper abdomen with regional lymphadenopathy the mass was inhomogeneous and when fine-needle aspiration was performed it was soft good samples were obtained I couldn't recognize the origin possibly from the pancreas possibly something else and the regional lymph nodes were in the 1 cm range hypoechoic but round and regular I did attempt to get a sample from one of the lymph nodes during the fine-needle aspiration of the mass was abutting the aorta EGD: FINDINGS: Following the endoscopic ultrasound as the patient awakened she was feeling pain in the upper abdomen and her abdomen was noted to be distended not so tympanic but more so than what we had when we started and so a quick EGD was performed the esophagus appeared to be unremarkable the stomach also appeared to be unremarkable there was a small hiatal hernia but otherwise no bleeding and no tears were noted and an NG tube was placed ESTIMATED BLOOD LOSS: Minimal SPECIMENS REMOVED: Abdominal mass fine-needle aspiration COMPLICATIONS: Abdominal distention etiology unclear IMPRESSION: Upper abdominal mass Abdominal distention post procedure PLAN: Await biopsies Stat CT of the abdomen Further recommendations shall depend on hospital course Bayron Santiago MD Nov 25, 2017 14:40
[2017-11-25] MEDS: cefTRIAXone INJ 1,000 MG in SODIUM CHLORIDE 0.9% INJ 100 ML IV SCH (15:54)
--- NOTE | 2017-11-25 15:58 | RADRPT ---
EXAM DATE/TIME: 11/25/2017 15:08 [facility] COMPARISON: CT ABDOMEN & PELVIS W/O CONTRAST, November 24, 2017, 11:03. INDICATIONS : Abdominal distention and pain after endoscopic procedure with biopsy ORAL CONTRAST: No oral contrast ingested. RADIATION DOSE: 7.77 CTDIvol (mGy) MEDICAL HISTORY : Hernia, hiatal. Pancreatic tumor SURGICAL HISTORY : Cholecystectomy. ENCOUNTER: Initial ACUITY: 1 day PAIN SCALE: 9/10 LOCATION: Abdomen TECHNIQUE: Volumetric scanning of the abdomen and pelvis was performed. Using automated exposure control and ad justment of the mA and/or kV according to patient size, radiation dose was kept as low as reasonably achievable to obtain optimal diagnostic quality images. DICOM format image data is available electro nically for review and comparison. FINDINGS: LOWER LUNGS: Mild atelectatic changes in the lung bases. No confluent infiltrate. LIVER: Area of diminished attenuation predominantly right hepatic lobe are concerning for metastatic disease . Liver appears to be somewhat cirrhotic as it is small and nodular. There is no dilation of the guerita iary tree. Patient appears to be status post cholecystectomy. SPLEEN: Normal size without lesion. PANCREAS: Abnormal appearance of the pancreas with a low density lesion at the junction of the body and tail an d regional dilation of the distal pancreatic duct. In addition, there is a 4.7 x 4.3 cm low-density a deanne just cephalad to the head of the pancreas which may represent regional abnormal peripancreatic no rafa/mass. KIDNEYS: Normal in size and shape. There is no mass, stone, or hydronephrosis. ADRENAL GLANDS: Within normal limits. VASCULAR: There is no aortic aneurysm. BOWEL/MESENTERY: Diffuse abdominal ascites, unchanged from prior. Abnormal appearance of the omentum likely representi ng omental spread of metastatic cancer. ABDOMINAL WALL: Within normal limits. RETROPERITONEUM: There is no lymphadenopathy. BLADDER: No wall thickening or mass. REPRODUCTIVE: Within normal limits. INGUINAL: There is no lymphadenopathy or hernia. MUSCULOSKELETAL: Posterior transpedicular fixation of the lower lumbar spine. Otherwise intact CONCLUSION: 1. Very stable appearance of the abdomen and pelvis post laparoscopy and biopsy. 2. Pancreatic mass lesion near the junction of the body and tail, dilation of the distal pancreatic d uct, probable regional markus mass lesion just cephalad to the pancreas with findings of metastatic di sease to the liver and omentum. 3. Stable ascites. Hugo Tapia MD on November 25, 2017 at 15:29 Board Certified Radiologist. This report was verified electronically.
[2017-11-25 16:00] VITALS: BP 123/56; PULSE 112; RESP 17; TEMP 95.5; O2SAT 93
--- NOTE | 2017-11-25 17:28 | HHI.PR ---
Subjective Remarks Pt has primary discomfort from abdomen full of fluid. She denies nausea or vomiting. She understands this mass is likely pancreatic cancer Objective Vitals Vital Signs Date Time Temp Pulse Resp B/P (MAP) Pulse Ox O2 Delivery O2 Flow Rate FiO2 11/25/17 16:00 95.5 112 17 123/56 (78) 93 11/25/17 15:05 100 24 143/67 (92) 100 11/25/17 14:55 100 24 136/61 (86) 100 11/25/17 14:40 100 24 118/58 (78) 100 11/25/17 12:00 96.9 105 17 90/55 (67) 95 11/25/17 08:00 96.8 105 17 90/54 (66) 95 11/25/17 03:58 18 11/25/17 00:00 96.7 112 17 120/46 (70) 92 11/24/17 20:00 96.4 111 17 123/69 (87) 91 I/O 11/24/17 11/24/17 11/24/17 11/25/17 11/25/17 11/25/17 07:00 15:00 23:00 07:00 15:00 23:00 Intake Total 1580 ml 0 ml 700 ml Output Total 100 ml Balance 1480 ml 0 ml 700 ml Intake Oral 480 ml 0 ml IV Total 1100 ml Other 700 ml Output Urine Total 100 ml # Voids 3 # Bowel Movements 0 0 Result Diagram: 11/25/17 1030 11/25/17 1030 A/P Problem List: (1) Pancreatic mass ICD Code: K86.9 - Disease of pancreas, unspecified (2) Acute kidney injury ICD Code: N17.9 - Acute kidney failure, unspecified Status: Acute (3) Ascites ICD Code: R18.8 - Other ascites Status: Acute (4) Abdominal pain ICD Code: R10.9 - Unspecified abdominal pain Status: Acute Assessment and Plan Pancreatic Mass CT Abdomen shows 4cm mass in body/tail of pancreas with spots on liver that seem solid (not cystic) Likely pancreatic cancer with evidence of mets to liver and kidneys Oncology consulted to guide work up Ascites Underwent paracentesis today, tolerated procedure well, not much fluid removed Acute Renal Dysfunction, Dehydration Creatinine 2.55 on admission, now 1.99 Avoid nephrotoxins IVF for slow rehydration Repeat creatinine with a.m. labs Urinary Tract Infection UTI present on UA Start Rocephin Daily Leukocytosis Through to be due to UTI Trend is downward on Rocephin DVT Prophylaxis Anticoagulants held for procedures SCD hose Problem Qualifiers (1) Ascites: Qualified Codes: R18.0 - Malignant ascites (2) Abdominal pain: Qualified Codes: R10.84 - Generalized abdominal pain Dustin Michelle MD Nov 25, 2017 17:28
[2017-11-25] MEDS: SODIUM CHLOR 0.9% 1000 ML INJ 1,000 ML IV SCH (17:41)
[2017-11-25] MEDS: MORPHINE SULFATE 2 MG/ML INJ SQ PRN (17:42)
--- NOTE | 2017-11-25 21:49 | EKG ---
Date Performed: 11/24/2017 Time Performed: 18:10:30 PTAGE: 67 years EKG: Sinus tachycardia. Possible anterior infarct - age undetermined Generalized low QRS voltage s Abnormal ECG NO PREVIOUS TRACING DOCTOR: Manuel Echeverria Interpretating Date/Time 11/25/2017 21:47:36
--- NOTE | 2017-11-25 22:56 | PD.ONC.PN ---
Subjective Subjective Remarks paracentesis today plan for biopsy of either liver of pancreas biopsy d/w patient will need port placement once malignancy is confirmed Objective Data Date Time Temp Pulse Resp B/P (MAP) Pulse Ox O2 Delivery O2 Flow Rate FiO2 11/25/17 16:00 95.5 112 17 123/56 (78) 93 11/25/17 15:05 100 24 143/67 (92) 100 11/25/17 14:55 100 24 136/61 (86) 100 11/25/17 14:40 100 24 118/58 (78) 100 11/25/17 12:00 96.9 105 17 90/55 (67) 95 11/25/17 08:00 96.8 105 17 90/54 (66) 95 11/25/17 03:58 18 11/25/17 00:00 96.7 112 17 120/46 (70) 92 11/25/17 11/25/17 11/25/17 07:00 15:00 23:00 Intake Total 0 ml 1600 ml Balance 0 ml 1600 ml Result Diagram: 11/25/17 1030 11/25/17 1030 Laboratory Results Laboratory Tests Test 11/25/17 10:30 White Blood Count 13.5 TH/MM3 Red Blood Count 4.25 MIL/MM3 Hemoglobin 12.7 GM/DL Hematocrit 38.5 % Mean Corpuscular Volume 90.4 FL Mean Corpuscular Hemoglobin 30.0 PG Mean Corpuscular Hemoglobin Concent 33.1 % Red Cell Distribution Width 12.8 % Platelet Count 663 TH/MM3 Mean Platelet Volume 7.2 FL Neutrophils (%) (Auto) 82.4 % Lymphocytes (%) (Auto) 8.2 % Monocytes (%) (Auto) 9.0 % Eosinophils (%) (Auto) 0.2 % Basophils (%) (Auto) 0.2 % Neutrophils # (Auto) 11.1 TH/MM3 Lymphocytes # (Auto) 1.1 TH/MM3 Monocytes # (Auto) 1.2 TH/MM3 Eosinophils # (Auto) 0.0 TH/MM3 Basophils # (Auto) 0.0 TH/MM3 CBC Comment DIFF FINAL Differential Comment Blood Urea Nitrogen 54 MG/DL Creatinine 1.99 MG/DL Random Glucose 86 MG/DL Total Protein 6.3 GM/DL Albumin 2.3 GM/DL Calcium Level 8.7 MG/DL Alkaline Phosphatase 108 U/L Aspartate Amino Transf (AST/SGOT) 90 U/L Alanine Aminotransferase (ALT/SGPT) 59 U/L Total Bilirubin 0.3 MG/DL Sodium Level 137 MEQ/L Potassium Level 4.6 MEQ/L Chloride Level 103 MEQ/L Carbon Dioxide Level 20.7 MEQ/L Anion Gap 13 MEQ/L Estimat Glomerular Filtration Rate 25 ML/MIN Tumor Marker Alpha Fetoprotein 2.4 NG/ML Carcinoembryonic Antigen 2.1 NG/ML CA 19-9 Antigen 132.0 U/ML Culture Results Microbiology Date/Time Source Procedure Growth Status 11/24/17 14:00 Urine Random Urine Urine Culture - Final 10-50,000 CFU/ML MIXED ILANA... Complete Imaging Studies Last 24 hours Impressions Abdomen/Pelvis CT 11/25/17 0000 Signed Impressions: Service Date/Time: Thursday, November 25, 2017 15:08 - CONCLUSION: 1. Very stable appearance of the abdomen and pelvis post laparoscopy and biopsy. 2. Pancreatic mass lesion near the junction of the body and tail, dilation of the distal pancreatic duct, probable regional markus mass lesion just cephalad to the pancreas with findings of metastatic disease to the liver and omentum. 3. Stable ascites. Hugo Tapia MD Administered Medications Medications (Trade) Dose Ordered Sig/Jeff Route PRN Reason Start Time Stop Time Status Last Admin Dose Admin Sodium Chloride (NS Flush) 2 ml UNSCH PRN IV FLUSH FLUSH AFTER USING IV ACCESS 11/24/17 13:00 11/25/17 12:50 Sodium Chloride (NS Flush) 2 ml BID IV FLUSH 11/24/17 13:00 11/25/17 21:07 Senna/Docusate Sodium (Iris-Colace) 1 tab BID PO 11/24/17 13:00 11/25/17 21:07 Morphine Sulfate (Morphine Inj) 4 mg Q3H PRN IV PUSH pain 5-10 11/24/17 13:00 11/25/17 21:06 Ceftriaxone Sodium 1000 mg/ Sodium Chloride 100 ml @ 200 mls/hr Q24H IV 11/24/17 16:00 11/25/17 15:54 Sodium Chloride 1,000 ml @ 84 mls/hr [id number] IV 11/25/17 17:30 11/25/17 17:41 Morphine Sulfate (Morphine Inj) 2 mg Q3H PRN SQ breakthrough pain 11/25/17 17:45 11/25/17 17:42 Objective Remarks GENERAL: nad SKIN: Warm and dry LYMPHATIC: No adenopathy. CARDIOVASCULAR: Regular rate and rhythm without murmurs. RESPIRATORY: Breath sounds equal bilaterally. No accessory muscle use. GASTROINTESTINAL: distended with fluid wave EXTREMITIES: No cyanosis, or edema. Assessment/Plan Problem List: (1) Ascites ICD Codes: R18.8 - Other ascites Status: Acute (2) Abdominal pain ICD Codes: R10.9 - Unspecified abdominal pain Status: Acute (3) Pancreatic mass ICD Codes: K86.9 - Disease of pancreas, unspecified (4) Acute kidney injury ICD Codes: N17.9 - Acute kidney failure, unspecified Status: Acute Assessment 1. Pancreatic mass/liver mass/carcinomatosis - follow cytology and path results - port placement once malignancy confirmed - o/p oncology f/u Problem Qualifiers (1) Ascites: Qualified Codes: R18.0 - Malignant ascites (2) Abdominal pain: Qualified Codes: R10.84 - Generalized abdominal pain Sathya Bradford MD Nov 25, 2017 22:56
[2017-11-26] VITALS: BP 101/60; PULSE 113; RESP 18; TEMP 97.2; O2SAT 94
[2017-11-26] MEDS: MORPHINE SULFATE 4 MG/ML INJ IV PUSH PRN ×7 (00:23→22:06)
[2017-11-26] MEDS: MORPHINE SULFATE 2 MG/ML INJ SQ PRN ×2 (01:40→20:12)
[2017-11-26] MEDS: SODIUM CHLOR 0.9% 1000 ML INJ 1,000 ML IV SCH ×2 (06:04→17:40)
[2017-11-26 08:00] VITALS: BP 101/54; PULSE 18; RESP 19; TEMP 97.1; O2SAT 95
[2017-11-26 08:19] LABS: AUTOMATED NEUTROPHIL # 13.2 TH/MM3 (1.8-7.7); BASOPHIL % 0.2 % (0.0-2.0); HEMATOCRIT 35.8 % (35.0-46.0); HEMOGLOBIN 11.8 GM/DL (11.6-15.3); LYMPH % 8.4 % (9.0-44.0); LYMPHOCYTE # 1.4 TH/MM3 (1.0-4.8); MEAN CELL VOLUME 91.3 FL (80.0-100.0); MEAN CORPUSCULAR HEMOGLOBIN 30.1 PG (27.0-34.0); MEAN PLATELET VOLUME 7.8 FL (7.0-11.0); MONO % 10.2 % (0.0-8.0); MONOCYTE # 1.7 TH/MM3 (0-0.9); NEUT % 81.2 % (16.0-70.0); PLATELET COUNT 620 TH/MM3 (150-450); RED BLOOD COUNT 3.92 MIL/MM3 (4.00-5.30); RED CELL DISTRIBUTION WIDTH 12.8 % (11.6-17.2); WHITE BLOOD COUNT 16.3 TH/MM3 (4.0-11.0)
[2017-11-26 08:46] LABS: ALBUMIN 2.2 GM/DL (3.4-5.0); ALKALINE PHOSPHATASE 105 U/L (45-117); ALT (GPT) 55 U/L (10-53); AST (GOT) 92 U/L (15-37); BLOOD UREA NITROGEN 65 MG/DL (7-18); CALCIUM 8.1 MG/DL (8.5-10.1); CHLORIDE 104 MEQ/L (98-107); CREATININE 2.23 MG/DL (0.50-1.00); GLOMERULAR FILTRATION RATE 22 ML/MIN (>89); GLUCOSE,RANDOM 71 MG/DL (74-106); SODIUM (NA) 138 MEQ/L (136-145); TOTAL BILIRUBIN ADULT 0.3 MG/DL (0.2-1.0)
[2017-11-26] MEDS: DOCUSATE SODIUM 50 MG/SENNA 8.6 MG TAB PO SCH ×2 (08:46→20:03)
[2017-11-26] MEDS: SODIUM CHLORIDE 0.9% FLUSH 10 ML FLUSH IV FLUSH SCH ×2 (08:46→20:03)
[2017-11-26 12:35] VITALS: BP 108/73; PULSE 98; RESP 16; RESP 20; TEMP 97.8; O2SAT 95
--- NOTE | 2017-11-26 12:52 | HHI.GIFU ---
Subjective Remarks Pt resting in bed. "I'm lousy." abd pain unchanged. + nausea, no vomiting (Tanesha Champagne) Objective Vitals I&O Vital Signs Date Time Temp Pulse Resp B/P (MAP) Pulse Ox O2 Delivery O2 Flow Rate FiO2 11/26/17 08:00 97.1 18 19 101/54 (70) 95 11/26/17 00:00 97.2 113 18 101/60 (74) 94 11/25/17 16:00 95.5 112 17 123/56 (78) 93 11/25/17 15:05 100 24 143/67 (92) 100 11/25/17 14:55 100 24 136/61 (86) 100 11/25/17 14:40 100 24 118/58 (78) 100 I/O 11/25/17 11/25/17 11/25/17 11/26/17 11/26/17 11/26/17 07:00 15:00 23:00 07:00 15:00 23:00 Intake Total 0 ml 1600 ml 0 ml Balance 0 ml 1600 ml 0 ml Intake Oral 0 ml 0 ml 0 ml IV Total 900 ml Other 700 ml # Voids 3 2 3 # Bowel Movements 0 0 Laboratory Laboratory Tests Test 11/26/17 06:43 White Blood Count 16.3 Red Blood Count 3.92 Hemoglobin 11.8 Hematocrit 35.8 Mean Corpuscular Volume 91.3 Mean Corpuscular Hemoglobin 30.1 Mean Corpuscular Hemoglobin Concent 33.0 Red Cell Distribution Width 12.8 Platelet Count 620 Mean Platelet Volume 7.8 Neutrophils (%) (Auto) 81.2 Lymphocytes (%) (Auto) 8.4 Monocytes (%) (Auto) 10.2 Eosinophils (%) (Auto) 0.0 Basophils (%) (Auto) 0.2 Neutrophils # (Auto) 13.2 Lymphocytes # (Auto) 1.4 Monocytes # (Auto) 1.7 Eosinophils # (Auto) 0.0 Basophils # (Auto) 0.0 CBC Comment DIFF FINAL Differential Comment Blood Urea Nitrogen 65 Creatinine 2.23 Random Glucose 71 Total Protein 6.0 Albumin 2.2 Calcium Level 8.1 Alkaline Phosphatase 105 Aspartate Amino Transf (AST/SGOT) 92 Alanine Aminotransferase (ALT/SGPT) 55 Total Bilirubin 0.3 Sodium Level 138 Potassium Level 4.7 Chloride Level 104 Carbon Dioxide Level 15.0 Anion Gap 19 Estimat Glomerular Filtration Rate 22 Date/Time Source Procedure Growth Status 11/24/17 14:00 Urine Random Urine Urine Culture - Final 10-50,000 CFU/ML MIXED ILANA... Complete Imaging Last Impressions Abdomen/Pelvis CT 11/25/17 0000 Signed Impressions: Service Date/Time: Saturday, November 25, 2017 15:08 - CONCLUSION: 1. Very stable appearance of the abdomen and pelvis post laparoscopy and biopsy. 2. Pancreatic mass lesion near the junction of the body and tail, dilation of the distal pancreatic duct, probable regional markus mass lesion just cephalad to the pancreas with findings of metastatic disease to the liver and omentum. 3. Stable ascites. Hugo Tapia MD Chest X-Ray 11/24/17 1031 Signed Impressions: Service Date/Time: Friday, November 24, 2017 10:41 - CONCLUSION: Blunting of the right costophrenic angle either related to a tiny effusion or pleural/parenchymal scarring. No acute infiltrate. Cody Doyle Jr., MD Abdomen MRI 11/24/17 0000 Signed Impressions: Service Date/Time: Friday, November 24, 2017 15:27 - CONCLUSION: 1. Study is somewhat limited due to the lack of IV contrast. There is a 5.1 x 4.0 cm pancreatic mass with metastatic lesions to the liver as well as the omentum. A moderate volume of ascites is seen. Cody Doyle Jr., MD Physical Exam HEENT: PERRL; normocephalic; atraumatic; no jaundice. CHEST: CTA CARDIAC: RRR ABDOMEN: Semifirm, distended, diffuse TTP; no hepatosplenomegaly; bowel sounds are present in all four quadrants. EXTREMITIES: No clubbing, cyanosis, or edema. SKIN: Normal; no rash; no jaundice. FLAMER AFTER LASTING: No focal deficits; alert and oriented times three. (Tanesha Champagne) Assessment and Plan Plan Assessment: - Abnormal CT (abdomen and pelvis W/O IV contrast) findings Findings worrisome for metastatic pancreatic cancer. There is limited evaluation due to lack of IV contrast on this exam. The patient needs an anatomical study with IV contrast utilizing CT technique or MRI. there is an approximate 4 cm mass felt present within the pancreatic body/ tail with metastatic lesions to the liver and carcinomatosis. Moderate amount of ascites noted. Pt denies history of liver or pancreatic disease. Denies family history of cancer. EUS with FNA to evaluate. Tumor markers. - Ascites- likely secondary to metastasis- abdominal distention over the fast few months, worse over the past few weeks - Transaminitis- likely from metastasis. Pt denies history of ETOH. Reports hepatitis as a child, but states it cleared. - FAY- GFR- pt denies history of impaire renal function Last EGD in August --> Hiatal hernia, otherwise normal Last colonoscopy in 2013- states normal exam but has personal history of colon polyps 11/26/17 S/P EGD/EUS w/ FNA found upper abd mass, abd distention post procedure. stat CT ordered and was stable compared to that of 11/24/17. CA 19-9 elevated 132. distended. Oncology on case, plans for port placement once malignancy confirmed Plan: - await bx - monitor labs - Supportive care Pt has been seen and examined by myself and Dr. Santiago and this note is written on his behalf (Tanesha Champagne) Physician Comments Patient seen and examined Agree with above Continue current supportive care Monitor labs Await pathology (Bayron Santiago MD) Tanesha Champagne Nov 26, 2017 12:52 Bayron Santiago MD Nov 26, 2017 22:15
--- NOTE | 2017-11-26 13:51 | PD.ONC.PN ---
Subjective Subjective Remarks Afebrile overnight. late entry, patient seen at 10AM. Patient resting in bed in nad. No complaints. Wanting to know when she can go home. Objective Data Date Time Temp Pulse Resp B/P (MAP) Pulse Ox O2 Delivery O2 Flow Rate FiO2 11/26/17 12:35 97.8 98 16 108/73 (85) 95 11/26/17 08:00 97.1 18 19 101/54 (70) 95 11/26/17 00:00 97.2 113 18 101/60 (74) 94 11/25/17 16:00 95.5 112 17 123/56 (78) 93 11/25/17 15:05 100 24 143/67 (92) 100 11/25/17 14:55 100 24 136/61 (86) 100 11/25/17 14:40 100 24 118/58 (78) 100 11/26/17 11/26/17 11/26/17 07:00 15:00 23:00 Intake Total 0 ml Balance 0 ml Result Diagram: 11/26/17 0643 11/26/17 0643 Laboratory Results Laboratory Tests Test 11/26/17 06:43 White Blood Count 16.3 TH/MM3 Red Blood Count 3.92 MIL/MM3 Hemoglobin 11.8 GM/DL Hematocrit 35.8 % Mean Corpuscular Volume 91.3 FL Mean Corpuscular Hemoglobin 30.1 PG Mean Corpuscular Hemoglobin Concent 33.0 % Red Cell Distribution Width 12.8 % Platelet Count 620 TH/MM3 Mean Platelet Volume 7.8 FL Neutrophils (%) (Auto) 81.2 % Lymphocytes (%) (Auto) 8.4 % Monocytes (%) (Auto) 10.2 % Eosinophils (%) (Auto) 0.0 % Basophils (%) (Auto) 0.2 % Neutrophils # (Auto) 13.2 TH/MM3 Lymphocytes # (Auto) 1.4 TH/MM3 Monocytes # (Auto) 1.7 TH/MM3 Eosinophils # (Auto) 0.0 TH/MM3 Basophils # (Auto) 0.0 TH/MM3 CBC Comment DIFF FINAL Differential Comment Blood Urea Nitrogen 65 MG/DL Creatinine 2.23 MG/DL Random Glucose 71 MG/DL Total Protein 6.0 GM/DL Albumin 2.2 GM/DL Calcium Level 8.1 MG/DL Alkaline Phosphatase 105 U/L Aspartate Amino Transf (AST/SGOT) 92 U/L Alanine Aminotransferase (ALT/SGPT) 55 U/L Total Bilirubin 0.3 MG/DL Sodium Level 138 MEQ/L Potassium Level 4.7 MEQ/L Chloride Level 104 MEQ/L Carbon Dioxide Level 15.0 MEQ/L Anion Gap 19 MEQ/L Estimat Glomerular Filtration Rate 22 ML/MIN Culture Results Microbiology Date/Time Source Procedure Growth Status 11/24/17 14:00 Urine Random Urine Urine Culture - Final 10-50,000 CFU/ML MIXED ILANA... Complete Administered Medications Medications (Trade) Dose Ordered Sig/Jeff Route PRN Reason Start Time Stop Time Status Last Admin Dose Admin Sodium Chloride (NS Flush) 2 ml UNSCH PRN IV FLUSH FLUSH AFTER USING IV ACCESS 11/24/17 13:00 11/25/17 12:50 Sodium Chloride (NS Flush) 2 ml BID IV FLUSH 11/24/17 13:00 11/25/17 21:07 Senna/Docusate Sodium (Iris-Colace) 1 tab BID PO 11/24/17 13:00 11/25/17 21:07 Morphine Sulfate (Morphine Inj) 4 mg Q3H PRN IV PUSH pain 5-10 11/24/17 13:00 11/26/17 12:16 Ceftriaxone Sodium 1000 mg/ Sodium Chloride 100 ml @ 200 mls/hr Q24H IV 11/24/17 16:00 11/25/17 15:54 Sodium Chloride 1,000 ml @ 84 mls/hr [id number] IV 11/25/17 17:30 11/26/17 06:04 Morphine Sulfate (Morphine Inj) 2 mg Q3H PRN SQ breakthrough pain 11/25/17 17:45 11/26/17 01:40 Objective Remarks GENERAL: Pleasant middle aged female, supine in bed in [facility]. SKIN: Warm and dry. HEAD: Normocephalic. EYES: No injection or drainage. NECK: Supple, trachea midline. CARDIOVASCULAR: Regular rate and rhythm RESPIRATORY: Breath sounds equal bilaterally. No accessory muscle use. GASTROINTESTINAL: Abdomen distended. EXTREMITIES: No cyanosis NEUROLOGICAL: awake and alert, normal speech. moving all extremities. Assessment/Plan Problem List: (1) Ascites ICD Codes: R18.8 - Other ascites Status: Acute (2) Pancreatic mass ICD Codes: K86.9 - Disease of pancreas, unspecified Plan: --highly suspicious for underlying pancreatic malignancy with metastatic disease. --CA 19-9 elevated --If this is confirmed malignancy, this is advanced stage disease and treatment options will not be curative. will need outpatient follow up with oncology. (3) Acute kidney injury ICD Codes: N17.9 - Acute kidney failure, unspecified Status: Acute Assessment 67y/o female with pancreatic head mass with metastatic lesions to the liver + carcinomatosis. s/p EUS +FNA pathology pending. Plan 1. await pathology 2. obtain biopsy through invasive radiology--per IR, they want to wait until EUS pathology returns before attempting CT Guided biopsy of mass. Attending Statement The exam, history, and the medical decision-making described in the above note were completed with the assistance of the mid-level provider. I reviewed and agree with the findings presented. I attest that I had a [id number] encounter with the patient on the same day, and personally performed and documented my assessment and findings in the medical record Problem Qualifiers (1) Ascites: Qualified Codes: R18.0 - Malignant ascites Dorina Loza Nov 26, 2017 13:51 Sathya Bradford MD Nov 26, 2017 20:49
--- NOTE | 2017-11-26 14:28 | HHI.PR ---
Subjective Remarks Patient underwent paracentesis yesterday with not much fluid removed. She did not tolerate the NG tube after the procedure and requested to have it removed. She is feeling better today with less pain. There is a biopsy of the liver scheduled today. She is n.p.o. for that. Objective Vitals Vital Signs Date Time Temp Pulse Resp B/P (MAP) Pulse Ox O2 Delivery O2 Flow Rate FiO2 11/26/17 12:35 97.8 98 16 108/73 (85) 95 11/26/17 08:00 97.1 18 19 101/54 (70) 95 11/26/17 00:00 97.2 113 18 101/60 (74) 94 11/25/17 16:00 95.5 112 17 123/56 (78) 93 11/25/17 15:05 100 24 143/67 (92) 100 11/25/17 14:55 100 24 136/61 (86) 100 11/25/17 14:40 100 24 118/58 (78) 100 I/O 11/25/17 11/25/17 11/25/17 11/26/17 11/26/17 11/26/17 07:00 15:00 23:00 07:00 15:00 23:00 Intake Total 0 ml 1600 ml 0 ml Balance 0 ml 1600 ml 0 ml Intake Oral 0 ml 0 ml 0 ml IV Total 900 ml Other 700 ml # Voids 3 2 3 # Bowel Movements 0 0 Result Diagram: 11/26/17 0643 11/26/17 0643 Objective Remarks GENERAL: Well-nourished, well-developed patient, weak appearing SKIN: Warm and dry. HEAD: Normocephalic. EYES: No scleral icterus. No injection or drainage. NECK: Supple, trachea midline. No JVD or lymphadenopathy. CARDIOVASCULAR: Regular rate and rhythm without murmurs, gallops, or rubs. RESPIRATORY: Breath sounds equal bilaterally. No accessory muscle use. GASTROINTESTINAL: Abdomen is full, dull, hypoactive bowel sounds, mildly tender to palpation (ascites) EXTREMITIES: No cyanosis, or edema. NEUROLOGICAL: Awake, alert, and oriented x 3. Non-focal. A/P Problem List: (1) Pancreatic mass ICD Code: K86.9 - Disease of pancreas, unspecified (2) Acute kidney injury ICD Code: N17.9 - Acute kidney failure, unspecified Status: Acute (3) Ascites ICD Code: R18.8 - Other ascites Status: Acute (4) Abdominal pain ICD Code: R10.9 - Unspecified abdominal pain Status: Acute Assessment and Plan Pancreatic Mass CT Abdomen shows 4cm mass in body/tail of pancreas with spots on liver that seem solid (not cystic) Likely pancreatic cancer with evidence of mets to liver and kidneys Liver biopsy planned for today Oncology consulted to guide work up Ascites Underwent paracentesis 11/25/17, tolerated procedure well, not much fluid removed Rehydration prior to consideration of diuretics Acute Renal Dysfunction, Dehydration Creatinine improving slowly with hydration Avoid nephrotoxins Continue IVF for slow rehydration Follow creatinine Urinary Tract Infection UTI present on UA Start Rocephin Daily Leukocytosis Through to be due to UTI Trend is downward on Rocephin DVT Prophylaxis Anticoagulants held for procedures SCD hose Problem Qualifiers (1) Ascites: Qualified Codes: R18.0 - Malignant ascites (2) Abdominal pain: Qualified Codes: R10.84 - Generalized abdominal pain Dustin Michelle MD Nov 26, 2017 14:28
[2017-11-26] MEDS: cefTRIAXone INJ 1,000 MG in SODIUM CHLORIDE 0.9% INJ 100 ML IV SCH (15:31)
[2017-11-26 18:00] VITALS: BP 122/56; PULSE 111; RESP 20; TEMP 97.2; O2SAT 96
[2017-11-26 20:00] VITALS: BP 110/61; PULSE 113; RESP 20; TEMP 98; O2SAT 94
[2017-11-27] VITALS: BP 109/55; PULSE 112; RESP 20; TEMP 97.4; O2SAT 97
[2017-11-27] MEDS: MORPHINE SULFATE 4 MG/ML INJ IV PUSH PRN ×6 (03:48→20:42)
[2017-11-27] MEDS: SODIUM CHLOR 0.9% 1000 ML INJ 1,000 ML IV SCH (03:49)
[2017-11-27 05:46] LABS: AUTOMATED NEUTROPHIL # 12.8 TH/MM3 (1.8-7.7); BASOPHIL % 0.3 % (0.0-2.0); HEMATOCRIT 34.2 % (35.0-46.0); HEMOGLOBIN 11.3 GM/DL (11.6-15.3); LYMPH % 6.8 % (9.0-44.0); LYMPHOCYTE # 1.1 TH/MM3 (1.0-4.8); MEAN CELL VOLUME 91.3 FL (80.0-100.0); MEAN CORPUSCULAR HEMOGLOBIN 30.3 PG (27.0-34.0); MEAN CORPUSCULAR HGB CONC 33.2 % (32.0-36.0); MEAN PLATELET VOLUME 7.4 FL (7.0-11.0); MONO % 11.5 % (0.0-8.0); MONOCYTE # 1.8 TH/MM3 (0-0.9); NEUT % 81.4 % (16.0-70.0); PLATELET COUNT 515 TH/MM3 (150-450); RED BLOOD COUNT 3.74 MIL/MM3 (4.00-5.30); RED CELL DISTRIBUTION WIDTH 13.2 % (11.6-17.2); WHITE BLOOD COUNT 15.7 TH/MM3 (4.0-11.0)
[2017-11-27 06:03] LABS: BICARBONATE 16.8 MEQ/L (21.0-32.0); CALCIUM 8.1 MG/DL (8.5-10.1); CREATININE 2.62 MG/DL (0.50-1.00)
[2017-11-27 08:00] VITALS: BP 115/55; PULSE 114; RESP 20; TEMP 98; O2SAT 98
[2017-11-27] MEDS: DOCUSATE SODIUM 50 MG/SENNA 8.6 MG TAB PO SCH ×2 (08:19→20:37)
[2017-11-27] MEDS: SODIUM CHLORIDE 0.9% FLUSH 10 ML FLUSH IV FLUSH SCH ×2 (08:19→20:48)
[2017-11-27] MEDS: MORPHINE SULFATE 2 MG/ML INJ SQ PRN ×2 (08:26→21:52)
--- NOTE | 2017-11-27 10:30 | HHI.GIFU ---
Subjective Remarks Resting in bed, anxious to have liver bx done. Distended, uncomfortable. (Tanesha Champagne) Objective Vitals I&O Vital Signs Date Time Temp Pulse Resp B/P (MAP) Pulse Ox O2 Delivery O2 Flow Rate FiO2 11/27/17 08:00 98.0 114 20 115/55 (75) 98 11/27/17 00:00 97.4 112 20 109/55 (73) 97 11/26/17 20:00 98.0 113 20 110/61 (77) 94 11/26/17 18:00 97.2 111 20 122/56 (78) 96 11/26/17 12:35 97.8 98 16 108/73 (85) 95 I/O 11/26/17 11/26/17 11/26/17 11/27/17 11/27/17 11/27/17 07:00 15:00 23:00 07:00 15:00 23:00 Intake Total 0 ml 960 ml 360 ml 120 ml Output Total 900 ml Balance 0 ml 60 ml 360 ml 120 ml Intake Oral 0 ml 960 ml 360 ml 120 ml Output Urine Total 900 ml # Voids 3 3 Laboratory Laboratory Tests Test 11/27/17 04:11 White Blood Count 15.7 Red Blood Count 3.74 Hemoglobin 11.3 Hematocrit 34.2 Mean Corpuscular Volume 91.3 Mean Corpuscular Hemoglobin 30.3 Mean Corpuscular Hemoglobin Concent 33.2 Red Cell Distribution Width 13.2 Platelet Count 515 Mean Platelet Volume 7.4 Neutrophils (%) (Auto) 81.4 Lymphocytes (%) (Auto) 6.8 Monocytes (%) (Auto) 11.5 Eosinophils (%) (Auto) 0.0 Basophils (%) (Auto) 0.3 Neutrophils # (Auto) 12.8 Lymphocytes # (Auto) 1.1 Monocytes # (Auto) 1.8 Eosinophils # (Auto) 0.0 Basophils # (Auto) 0.0 CBC Comment DIFF FINAL Differential Comment Blood Urea Nitrogen 76 Creatinine 2.62 Random Glucose 106 Calcium Level 8.1 Sodium Level 137 Potassium Level 5.3 Chloride Level 106 Carbon Dioxide Level 16.8 Anion Gap 14 Estimat Glomerular Filtration Rate 18 Date/Time Source Procedure Growth Status 11/24/17 14:00 Urine Random Urine Urine Culture - Final 10-50,000 CFU/ML MIXED ILANA... Complete Imaging Last Impressions Abdomen/Pelvis CT 11/25/17 0000 Signed Impressions: Service Date/Time: Saturday, November 25, 2017 15:08 - CONCLUSION: 1. Very stable appearance of the abdomen and pelvis post laparoscopy and biopsy. 2. Pancreatic mass lesion near the junction of the body and tail, dilation of the distal pancreatic duct, probable regional markus mass lesion just cephalad to the pancreas with findings of metastatic disease to the liver and omentum. 3. Stable ascites. Hugo Tapia MD Chest X-Ray 11/24/17 1031 Signed Impressions: Service Date/Time: Friday, November 24, 2017 10:41 - CONCLUSION: Blunting of the right costophrenic angle either related to a tiny effusion or pleural/parenchymal scarring. No acute infiltrate. Cody Doyle Jr., MD Abdomen MRI 11/24/17 0000 Signed Impressions: Service Date/Time: Friday, November 24, 2017 15:27 - CONCLUSION: 1. Study is somewhat limited due to the lack of IV contrast. There is a 5.1 x 4.0 cm pancreatic mass with metastatic lesions to the liver as well as the omentum. A moderate volume of ascites is seen. Cody Doyle Jr., MD Physical Exam HEENT: PERRL; normocephalic; atraumatic; no jaundice. CHEST: CTA CARDIAC: RRR ABDOMEN: Semifirm, distended, diffuse TTP; no hepatosplenomegaly; bowel sounds+ EXTREMITIES: No clubbing, cyanosis, or edema. SKIN: Normal; no rash; no jaundice. MECHANIC SENIOR: No focal deficits; alert and oriented times three. (Tanesha Champagne [facility]) Assessment and Plan Plan Assessment: - Abnormal CT (abdomen and pelvis W/O IV contrast) findings Findings worrisome for metastatic pancreatic cancer. There is limited evaluation due to lack of IV contrast on this exam. The patient needs an anatomical study with IV contrast utilizing CT technique or MRI. there is an approximate 4 cm mass felt present within the pancreatic body/ tail with metastatic lesions to the liver and carcinomatosis. Moderate amount of ascites noted. Pt denies history of liver or pancreatic disease. Denies family history of cancer. EUS with FNA to evaluate. Tumor markers. - Ascites- likely secondary to metastasis- abdominal distention over the fast few months, worse over the past few weeks - Transaminitis- likely from metastasis. Pt denies history of ETOH. Reports hepatitis as a child, but states it cleared. - FAY- GFR-19 pt denies history of impaire renal function Last EGD in August --> Hiatal hernia, otherwise normal Last colonoscopy in 2013- states normal exam but has personal history of colon polyps 11/26/17 S/P EGD/EUS w/ FNA found upper abd mass, abd distention post procedure. stat CT ordered and was stable compared to that of 11/24/17. CA 19-9 elevated 132. distended. Oncology on case, plans for port placement once malignancy confirmed 11/27/17 to have liver bx today. abd distended. path from EUS still pending. Plan: - await bx from EUS - await liver bx - monitor labs - Supportive care Pt has been seen and examined by myself and Dr. Santiago and this note is written on his behalf (Tanesha Champagne) Physician Comments Patient seen and examined Agree with above Continue with current supportive care Monitor labs FNA positive for adenocarcinoma We will defer further action to oncology We will sign off (Bayron Santiago MD) Tanesha Champagne Nov 27, 2017 10:30 Bayron Santiago MD Nov 27, 2017 19:37
[2017-11-27 12:00] VITALS: BP 110/55; PULSE 111; RESP 20; TEMP 97.7; O2SAT 95
[2017-11-27] MEDS ORDERED: ACETAMINOPHEN/HYDROcodone 325 MG/5 MG TAB PO PRN (15:30)
--- NOTE | 2017-11-27 15:34 | HHI.PR ---
Subjective Remarks Patient found out today that her biopsy of the pancreas from previous exam did not produce an adequate tissue sample. She is awaiting a interventional radiology liver biopsy with repeat pancreas biopsy to be done today. Her main complaint right now is pain. Objective Vitals Vital Signs Date Time Temp Pulse Resp B/P (MAP) Pulse Ox O2 Delivery O2 Flow Rate FiO2 11/27/17 12:00 97.7 111 20 110/55 (73) 95 11/27/17 08:00 98.0 114 20 115/55 (75) 98 11/27/17 00:00 97.4 112 20 109/55 (73) 97 11/26/17 20:00 98.0 113 20 110/61 (77) 94 11/26/17 18:00 97.2 111 20 122/56 (78) 96 I/O 11/26/17 11/26/17 11/26/17 11/27/17 11/27/17 11/27/17 07:00 15:00 23:00 07:00 15:00 23:00 Intake Total 0 ml 960 ml 360 ml 120 ml Output Total 900 ml Balance 0 ml 60 ml 360 ml 120 ml Intake Oral 0 ml 960 ml 360 ml 120 ml Output Urine Total 900 ml # Voids 3 3 Result Diagram: 11/27/1741011/27/17410 Objective Remarks GENERAL: Well-nourished, well-developed patient, weak appearing SKIN: Warm and dry. HEAD: Normocephalic. EYES: No scleral icterus. No injection or drainage. NECK: Supple, trachea midline. No JVD or lymphadenopathy. CARDIOVASCULAR: Regular rate and rhythm without murmurs, gallops, or rubs. RESPIRATORY: Breath sounds equal bilaterally. No accessory muscle use. GASTROINTESTINAL: Abdomen is full, dull, hypoactive bowel sounds, mildly tender to palpation (ascites) EXTREMITIES: No cyanosis, or edema. NEUROLOGICAL: Awake, alert, and oriented x 3. Non-focal. A/P Problem List: (1) Pancreatic mass ICD Code: K86.9 - Disease of pancreas, unspecified (2) Acute kidney injury ICD Code: N17.9 - Acute kidney failure, unspecified Status: Acute (3) Ascites ICD Code: R18.8 - Other ascites Status: Acute (4) Abdominal pain ICD Code: R10.9 - Unspecified abdominal pain Status: Acute Assessment and Plan Pancreatic Mass CT Abdomen shows 4cm mass in body/tail of pancreas with spots on liver that seem solid (not cystic) Likely pancreatic cancer with evidence of mets to liver and kidneys Liver biopsy with repeat pancreas biopsy planned for today Oncology consulted to guide work up Ascites Underwent paracentesis 11/25/17, not much fluid removed Rehydration prior to consideration of diuretics Acute Renal Dysfunction, Dehydration Creatinine improving slowly, but waxing and waning due to n.p.o. status Continue IVF for slow rehydration Avoid nephrotoxins Follow creatinine Urinary Tract Infection UTI present on UA Continue Rocephin Daily Leukocytosis Through to be due to UTI Trend is downward on Rocephin DVT Prophylaxis Anticoagulants held for procedures SCD hose Problem Qualifiers (1) Ascites: Qualified Codes: R18.0 - Malignant ascites (2) Abdominal pain: Qualified Codes: R10.84 - Generalized abdominal pain Dustin Michelle MD Nov 27, 2017 15:34
[2017-11-27] MEDS ORDERED: FUROSEMIDE 20 MG/2 ML VIAL IV PUSH ONE (16:15)
[2017-11-27] MEDS: cefTRIAXone INJ 1,000 MG in SODIUM CHLORIDE 0.9% INJ 100 ML IV SCH (16:32)
[2017-11-27] MEDS ORDERED: HYDR-3516 PO (17:39)
[2017-11-27] MEDS ORDERED: ONDA8TAB7 PO (17:39)
--- NOTE | 2017-11-27 17:42 | HHI.FF ---
Face to Face Verification Diagnosis: (1) Pancreatic cancer (2) Ascites (3) Acute renal insufficiency Home Health Nursing Order: Medical education Signs/symptoms of disease process Nursing assessment with vital signs I have seen patient Irais Rivas on 11/27/17. My clinical findings support the need for the requested home health care services because: Ltd mobility - disease progression Deconditioned w/ increased weakness I certify that my clinical findings support that this patient is homebound because: Unsteady gait/balance Unsafe to leave home unassisted Unable to use public transportation Dustin Michelle MD Nov 27, 2017 17:42
--- NOTE | 2017-11-27 17:46 | HHI.DS ---
Discharge Summary Admission Date Nov 24, 2017 at 12:54 Discharge Date: Nov 28, 2017 Admitting Diagnosis probable metastatic pancreatic cancer, acute kidney injury, anasarca (1) Pancreatic mass ICD Code: K86.9 - Disease of pancreas, unspecified (2) Acute kidney injury ICD Code: N17.9 - Acute kidney failure, unspecified Status: Acute (3) Ascites ICD Code: R18.8 - Other ascites Status: Acute (4) Abdominal pain ICD Code: R10.9 - Unspecified abdominal pain Status: Acute Procedures EGD with pancreatic biopsy. Interventional Radiology liver biopsy. Brief History - From Admission 67F presents to [place] ER today following 3 weeks of marked worsening in her abdominal fullness, associated with intermittent nausea (no vomiting), and loss of appetite. Up until recently she has been spending the winter in [place] where she underwent a work up for non-acute abdominal swelling that was blamed on her hiatal hernia. Prior to that she had no abdominal discomfort. She had PNA last summer and underwent a PET scan to rule out recurrence of a lung granuloma (past hx of), the PET scan did not show any masses. She has a history of hepatitis that occurred when she was 20 years old, though she does not recall which type it was. Family history is positive for renal cancer in her father. Social history is remarkable for approximately 40 pack years of smoking. CBC/BMP: 11/27/17 0411 11/27/17 0411 Significant Findings Laboratory Tests Test 11/25/17 10:30 11/26/17 06:43 11/27/17 04:11 White Blood Count 13.5 TH/MM3 (4.0-11.0) 16.3 TH/MM3 (4.0-11.0) 15.7 TH/MM3 (4.0-11.0) Platelet Count 663 TH/MM3 (150-450) 620 TH/MM3 (150-450) 515 TH/MM3 (150-450) Neutrophils (%) (Auto) 82.4 % (16.0-70.0) 81.2 % (16.0-70.0) 81.4 % (16.0-70.0) Lymphocytes (%) (Auto) 8.2 % (9.0-44.0) 8.4 % (9.0-44.0) 6.8 % (9.0-44.0) Monocytes (%) (Auto) 9.0 % (0.0-8.0) 10.2 % (0.0-8.0) 11.5 % (0.0-8.0) Neutrophils # (Auto) 11.1 TH/MM3 (1.8-7.7) 13.2 TH/MM3 (1.8-7.7) 12.8 TH/MM3 (1.8-7.7) Monocytes # (Auto) 1.2 TH/MM3 (0-0.9) 1.7 TH/MM3 (0-0.9) 1.8 TH/MM3 (0-0.9) Blood Urea Nitrogen 54 MG/DL (7-18) 65 MG/DL (7-18) 76 MG/DL (7-18) Creatinine 1.99 MG/DL (0.50-1.00) 2.23 MG/DL (0.50-1.00) 2.62 MG/DL (0.50-1.00) Total Protein 6.3 GM/DL (6.4-8.2) 6.0 GM/DL (6.4-8.2) Albumin 2.3 GM/DL (3.4-5.0) 2.2 GM/DL (3.4-5.0) Aspartate Amino Transf (AST/SGOT) 90 U/L (15-37) 92 U/L (15-37) Alanine Aminotransferase (ALT/SGPT) 59 U/L (10-53) 55 U/L (10-53) Carbon Dioxide Level 20.7 MEQ/L (21.0-32.0) 15.0 MEQ/L (21.0-32.0) 16.8 MEQ/L (21.0-32.0) Estimat Glomerular Filtration Rate 25 ML/MIN (>89) 22 ML/MIN (>89) 18 ML/MIN (>89) CA 19-9 Antigen 132.0 U/ML (0.0-35.0) Red Blood Count 3.92 MIL/MM3 (4.00-5.30) 3.74 MIL/MM3 (4.00-5.30) Random Glucose 71 MG/DL (74-106) Calcium Level 8.1 MG/DL (8.5-10.1) 8.1 MG/DL (8.5-10.1) Anion Gap 19 MEQ/L (5-15) Hemoglobin 11.3 GM/DL (11.6-15.3) Hematocrit 34.2 % (35.0-46.0) Potassium Level 5.3 MEQ/L (3.5-5.1) PE at Discharge GENERAL: Well-nourished, well-developed patient, weak appearing SKIN: Warm and dry. HEAD: Normocephalic. EYES: No scleral icterus. No injection or drainage. NECK: Supple, trachea midline. No JVD or lymphadenopathy. CARDIOVASCULAR: Regular rate and rhythm without murmurs, gallops, or rubs. RESPIRATORY: Breath sounds equal bilaterally. No accessory muscle use. GASTROINTESTINAL: Abdomen is full, dull, hypoactive bowel sounds, mildly tender to palpation (ascites) EXTREMITIES: No cyanosis, or edema. NEUROLOGICAL: Awake, alert, and oriented x 3. Non-focal. Hospital Course 67-year-old female who presented 2 days ago with increased abdominal swelling, discomfort, reduced appetite. CT scan ordered in the ER revealed a mass in the tail of her pancreas with evidence of metastasis to her liver and her kidneys. Initial biopsy results are consistent with pancreatic cancer. Further histological testing is pending before chemo can be decided. She will need a port placement for chemotherapy if that is her wish that she would like to have this done as an outpatient. She would like to go home and request that she can do this in the morning. Her family is at bedside and I discussed the possibility of home health nurse visiting her at home, she was happy to hear that option. She can recover here overnight and be discharged first thing in the morning. Pt Condition on Discharge: Fair Discharge Disposition: Disch w/ Home Health Serv Discharge Time: <= 30 minutes Discharge Instructions DIET: Follow Instructions for: As Tolerated, No Restrictions Activities you can perform: Weight Bearing as Dustin Price MD Nov 27, 2017 17:46
[2017-11-27 20:00] VITALS: BP 107/60; PULSE 111; RESP 18; TEMP 96; O2SAT 93
--- NOTE | 2017-11-27 20:14 | PD.ONC.PN ---
Subjective Subjective Remarks patient seen earlier in the day resting in bed path results were pending denies any pain want to go home soon Objective Data Date Time Temp Pulse Resp B/P (MAP) Pulse Ox O2 Delivery O2 Flow Rate FiO2 11/27/17 12:00 97.7 111 20 110/55 (73) 95 11/27/17 08:00 98.0 114 20 115/55 (75) 98 11/27/17 00:00 97.4 112 20 109/55 (73) 97 11/27/17 11/27/17 11/27/17 06:59 14:59 22:59 Intake Total 360 ml 120 ml 550 ml Output Total 700 ml Balance 360 ml 120 ml -150 ml Result Diagram: 11/27/17 0411 11/27/17 0411 Laboratory Results Laboratory Tests Test 11/27/17 04:11 White Blood Count 15.7 TH/MM3 Red Blood Count 3.74 MIL/MM3 Hemoglobin 11.3 GM/DL Hematocrit 34.2 % Mean Corpuscular Volume 91.3 FL Mean Corpuscular Hemoglobin 30.3 PG Mean Corpuscular Hemoglobin Concent 33.2 % Red Cell Distribution Width 13.2 % Platelet Count 515 TH/MM3 Mean Platelet Volume 7.4 FL Neutrophils (%) (Auto) 81.4 % Lymphocytes (%) (Auto) 6.8 % Monocytes (%) (Auto) 11.5 % Eosinophils (%) (Auto) 0.0 % Basophils (%) (Auto) 0.3 % Neutrophils # (Auto) 12.8 TH/MM3 Lymphocytes # (Auto) 1.1 TH/MM3 Monocytes # (Auto) 1.8 TH/MM3 Eosinophils # (Auto) 0.0 TH/MM3 Basophils # (Auto) 0.0 TH/MM3 CBC Comment DIFF FINAL Differential Comment Blood Urea Nitrogen 76 MG/DL Creatinine 2.62 MG/DL Random Glucose 106 MG/DL Calcium Level 8.1 MG/DL Sodium Level 137 MEQ/L Potassium Level 5.3 MEQ/L Chloride Level 106 MEQ/L Carbon Dioxide Level 16.8 MEQ/L Anion Gap 14 MEQ/L Estimat Glomerular Filtration Rate 18 ML/MIN Administered Medications Medications (Trade) Dose Ordered Sig/Jeff Route PRN Reason Start Time Stop Time Status Last Admin Dose Admin Sodium Chloride (NS Flush) 2 ml UNSCH PRN IV FLUSH FLUSH AFTER USING IV ACCESS 11/24/17 13:00 11/25/17 12:50 Sodium Chloride (NS Flush) 2 ml BID IV FLUSH 11/24/17 13:00 11/25/17 21:07 Senna/Docusate Sodium (Iris-Colace) 1 tab BID PO 11/24/17 13:00 11/26/17 20:03 Morphine Sulfate (Morphine Inj) 4 mg Q3H PRN IV PUSH pain 5-10 11/24/17 13:00 11/27/17 17:09 Ceftriaxone Sodium 1000 mg/ Sodium Chloride 100 ml @ 200 mls/hr Q24H IV 11/24/17 16:00 11/27/17 16:32 Morphine Sulfate (Morphine Inj) 2 mg Q3H PRN SQ breakthrough pain 11/25/17 17:45 11/27/17 08:26 Objective Remarks GENERAL: nad NECK: Supple, trachea midline. No JVD or lymphadenopathy. LYMPHATIC: No adenopathy. CARDIOVASCULAR: Regular rate and rhythm without murmurs. RESPIRATORY: Breath sounds equal bilaterally. No accessory muscle use. GASTROINTESTINAL: Abdomen soft, distended EXTREMITIES: No cyanosis, or edema. Assessment/Plan Problem List: (1) Ascites ICD Codes: R18.8 - Other ascites Status: Acute (2) Pancreatic mass ICD Codes: K86.9 - Disease of pancreas, unspecified Plan: --highly suspicious for underlying pancreatic malignancy with metastatic disease. --CA 19-9 elevated --If this is confirmed malignancy, this is advanced stage disease and treatment options will not be curative. will need outpatient follow up with oncology. (3) Acute kidney injury ICD Codes: N17.9 - Acute kidney failure, unspecified Status: Acute Assessment 67y/o female with pancreatic head mass with metastatic lesions to the liver + carcinomatosis. s/p EUS +FNA pathology pending. Plan 1. Poorly differentiated carcinoma with unknown primary - await IHC stains to determine primary - Ok to d/c home when medically stable - o/p f/u in oncology clinic - will need systemic therapy for metastatic disease - Port placement o/p or if stays in patient over the weekend can be done on Thursday 2. Acute Renal failure - baseline Cr unknown- could be CKD and at baseline - will need to evaluate past labs Problem Qualifiers (1) Ascites: Qualified Codes: R18.0 - Malignant ascites Sathya Bradford MD Nov 27, 2017 20:13
[2017-11-28] VITALS (7 sets, daily range): BP systolic 96–121; BP diastolic 54–63; PULSE 103–115; RESP 17–20; TEMP 95.6–96.8; O2SAT 91–100
[2017-11-28] MEDS: MORPHINE SULFATE 4 MG/ML INJ IV PUSH PRN ×4 (02:11→21:23)
[2017-11-28 07:49] LABS: AUTOMATED NEUTROPHIL # 12.4 TH/MM3 (1.8-7.7); BASOPHIL % 0.2 % (0.0-2.0); HEMATOCRIT 34.4 % (35.0-46.0); HEMOGLOBIN 11.4 GM/DL (11.6-15.3); LYMPH % 4.8 % (9.0-44.0); LYMPHOCYTE # 0.7 TH/MM3 (1.0-4.8); MEAN PLATELET VOLUME 7.3 FL (7.0-11.0); MONO % 11.4 % (0.0-8.0); MONOCYTE # 1.7 TH/MM3 (0-0.9); NEUT % 83.6 % (16.0-70.0); PLATELET COUNT 474 TH/MM3 (150-450); RED BLOOD COUNT 3.78 MIL/MM3 (4.00-5.30); RED CELL DISTRIBUTION WIDTH 13.1 % (11.6-17.2); WHITE BLOOD COUNT 14.8 TH/MM3 (4.0-11.0)
[2017-11-28 08:16] LABS: BICARBONATE 17.1 MEQ/L (21.0-32.0); CALCIUM 8.5 MG/DL (8.5-10.1); CREATININE 3.57 MG/DL (0.50-1.00)
[2017-11-28] MEDS: SODIUM CHLORIDE 0.9% FLUSH 10 ML FLUSH IV FLUSH SCH ×2 (11:33→19:26)
[2017-11-28] MEDS: DOCUSATE SODIUM 50 MG/SENNA 8.6 MG TAB PO SCH ×2 (11:34→21:23)
--- NOTE | 2017-11-28 13:38 | HHI.PR ---
Subjective Remarks Pt seen and examined. Tachycardic but otherwise VSS. No acute events overnight. Patient reports not feeling quite as ready to go home today. She states she is not taking much by mouth. Endorses some edema in both legs. Urination has decreased; denies dysuria or hematuria. Denies CP. Trying to ambulate but short of breath with minimal activity. Not on oxygen at home. Objective Vitals Vital Signs Date Time Temp Pulse Resp B/P (MAP) Pulse Ox O2 Delivery O2 Flow Rate FiO2 11/28/17 12:00 96.0 105 18 106/57 (73) 100 11/28/17 08:00 96.8 115 19 109/57 (74) 91 11/28/17 00:00 95.9 111 18 105/57 (73) 93 11/27/17 20:00 96.0 111 18 107/60 (76) 93 I/O 11/27/17 11/27/17 11/27/17 11/28/17 11/28/17 11/28/17 07:00 15:00 23:00 07:00 15:00 23:00 Intake Total 360 ml 120 ml 550 ml 340 ml Output Total 700 ml Balance 360 ml 120 ml -150 ml 340 ml Intake Oral 360 ml 120 ml 550 ml 340 ml Output Urine Total 700 ml # Voids 3 1 # Bowel Movements 0 Result Diagram: 11/28/17 0642 11/28/17 0642 Objective Remarks GENERAL: female laying comfortably in bed in [facility]. SKIN: Warm and dry. Intact. HEENT: Pupils equal and round. No scleral icterus. MMM. NECK: Supple no tender LAD or JVD. HEART: RRR no m/r/g. LUNGS: CTAB without wheezes or crackles. ABDOMEN: Distended with fluid shift. No significant TTP. EXTREMITIES: 1+ pitting edema midway up calves. NEURO: Awake and alert. Procedures EGD with pancreatic biopsy. Interventional Radiology liver biopsy. A/P Problem List: (1) Pancreatic mass ICD Code: K86.9 - Disease of pancreas, unspecified (2) Acute kidney injury ICD Code: N17.9 - Acute kidney failure, unspecified Status: Acute (3) Ascites ICD Code: R18.8 - Other ascites Status: Acute (4) Abdominal pain ICD Code: R10.9 - Unspecified abdominal pain Status: Acute Assessment and Plan Pancreatic Mass CT Abdomen shows 4cm mass in body/tail of pancreas with spots on liver that seem solid (not cystic) Likely pancreatic cancer with evidence of mets to liver and kidneys Oncology consulted to guide work up Ascites Underwent paracentesis 11/25/17, not much fluid removed Cytology showing poorly differentiated carcinoma Rehydration prior to consideration of diuretics Acute Renal Dysfunction, Dehydration Acutely elevated today to 3.57 Small NS bolus of 250 mL since edematous legs and ascites Avoid nephrotoxins Follow creatinine Urinary Tract Infection UTI present on UA but culture growing mixed darci 5 days of Rocephin completed DVT Prophylaxis Lovenox FEN Encourage PO NS at 84 ml/hr Monitor electrolytes Discharge Planning Anticipate D/C in 1-2 days pending renal status Problem Qualifiers (1) Ascites: Qualified Codes: R18.0 - Malignant ascites (2) Abdominal pain: Qualified Codes: R10.84 - Generalized abdominal pain Dodie Guevara MD Nov 28, 2017 13:37
[2017-11-28] MEDS ORDERED: SODIUM CHLOR 0.9% 250 ML INJ 250 ML IV ONE (13:45)
[2017-11-28] MEDS: cefTRIAXone INJ 1,000 MG in SODIUM CHLORIDE 0.9% INJ 100 ML IV SCH (15:25)
[2017-11-28] MEDS: SODIUM CHLOR 0.9% 1000 ML INJ 1,000 ML IV SCH (16:44)
[2017-11-28] MEDS: MORPHINE SULFATE 2 MG/ML INJ SQ PRN (19:39)
[2017-11-28] MEDS: HEPARIN SODIUM - SQ 10,000 UNITS/ML VIAL SQ SCH (21:22)
[2017-11-29] VITALS: BP 93/45; PULSE 104; RESP 20; TEMP 96.9; O2SAT 99
[2017-11-29 03:47] VITALS: BP 115/58
[2017-11-29] MEDS: MORPHINE SULFATE 4 MG/ML INJ IV PUSH PRN ×2 (03:48→07:54)
[2017-11-29 04:00] VITALS: BP 115/58; PULSE 103; RESP 20; TEMP 96.7; O2SAT 94
[2017-11-29] MEDS: SODIUM CHLOR 0.9% 1000 ML INJ 1,000 ML IV SCH ×2 (04:10→14:46)
[2017-11-29] MEDS: DOCUSATE SODIUM 50 MG/SENNA 8.6 MG TAB PO SCH (07:55)
[2017-11-29] MEDS: HEPARIN SODIUM - SQ 10,000 UNITS/ML VIAL SQ SCH (07:55)
[2017-11-29] MEDS: SODIUM CHLORIDE 0.9% FLUSH 10 ML FLUSH IV FLUSH SCH (07:55)
[2017-11-29 08:00] VITALS: BP_SYST 101; BP_SYST 124; BP_DIAS 45; BP_DIAS 58; PULSE 105; RESP 17; TEMP 96.3; O2SAT 96
[2017-11-29 08:43] LABS: AUTOMATED NEUTROPHIL # 12.4 TH/MM3 (1.8-7.7); BASOPHIL % 0.3 % (0.0-2.0); HEMATOCRIT 33.8 % (35.0-46.0); HEMOGLOBIN 11.2 GM/DL (11.6-15.3); LYMPHOCYTE # 0.7 TH/MM3 (1.0-4.8); MEAN CELL VOLUME 91.2 FL (80.0-100.0); MEAN CORPUSCULAR HEMOGLOBIN 30.1 PG (27.0-34.0); MEAN CORPUSCULAR HGB CONC 33.1 % (32.0-36.0); MEAN PLATELET VOLUME 7.9 FL (7.0-11.0); MONO % 10.5 % (0.0-8.0); MONOCYTE # 1.5 TH/MM3 (0-0.9); NEUT % 84.2 % (16.0-70.0); PLATELET COUNT 376 TH/MM3 (150-450); RED BLOOD COUNT 3.71 MIL/MM3 (4.00-5.30); RED CELL DISTRIBUTION WIDTH 13.2 % (11.6-17.2); WHITE BLOOD COUNT 14.7 TH/MM3 (4.0-11.0)
[2017-11-29 09:05] LABS: ALKALINE PHOSPHATASE 124 U/L (45-117); ALT (GPT) 53 U/L (10-53); AST (GOT) 114 U/L (15-37); BICARBONATE 14.2 MEQ/L (21.0-32.0); BLOOD UREA NITROGEN 105 MG/DL (7-18); CALCIUM 8.1 MG/DL (8.5-10.1); CHLORIDE 108 MEQ/L (98-107); CREATININE 3.89 MG/DL (0.50-1.00); GLOMERULAR FILTRATION RATE 12 ML/MIN (>89); GLUCOSE,RANDOM 91 MG/DL (74-106); SODIUM (NA) 137 MEQ/L (136-145); TOTAL BILIRUBIN ADULT 0.2 MG/DL (0.2-1.0); TOTAL PROTEIN 5.6 GM/DL (6.4-8.2)
[2017-11-29] MEDS ORDERED: MORPHINE SULFATE 8 MG/ML INJ IV PUSH PRN (11:00)
--- NOTE | 2017-11-29 11:04 | HHI.PR ---
Subjective Remarks Pt seen and examined today with the presence of family in the room. Becoming hypotensive and tachycardic and today family noted her to be lethargic and altered. She has been talking to herself and they state that she has been "gasping" for air intermittently. Breathing is more labored and she endorses intermittent chest pain. Family states they understand the poor prognosis of her condition and want her to be comfortable. Patient able to answer questions appropriately. Confirms she is a DNR and verifies that she stated this on admission as well. They are amenable to hospice care. Objective Vitals Vital Signs Date Time Temp Pulse Resp B/P (MAP) Pulse Ox O2 Delivery O2 Flow Rate FiO2 11/29/17 08:00 96.3 105 17 101/45 (63) 96 124/58 (80) 11/29/17 04:00 96.7 103 20 115/58 (77) 94 11/29/17 03:47 115/58 (77) 11/29/17 00:00 96.9 104 20 93/45 (61) 99 11/28/17 21:21 111/58 (75) 11/28/17 20:00 95.6 103 20 96/54 (68) 98 11/28/17 17:55 94 Nasal Cannula 2.00 11/28/17 16:00 96.3 109 17 121/63 (82) 94 11/28/17 12:00 96.0 105 18 106/57 (73) 100 I/O 11/28/17 11/28/17 11/28/17 11/29/17 11/29/17 11/29/17 07:00 15:00 23:00 07:00 15:00 23:00 Intake Total 340 ml 809 ml 1480 ml Balance 340 ml 809 ml 1480 ml Intake Oral 340 ml 375 ml 480 ml IV Total 434 ml 1000 ml # Voids 1 2 3 # Bowel Movements 0 Result Diagram: 11/29/1715 11/29/17 0715 Objective Remarks GENERAL: female laying in bed moaning with increased work of breathing. SKIN: Dry, intact, no jaundice. HEENT: Pupils equal and round. CHEST: TTP over anterior chest. HEART: RRR no m/r/g. LUNGS: CTAB without wheezes or crackles. ABDOMEN: Distended and tight. EXTREMITIES: 1+ pitting edema midway up calves. Toes dusky and cool. NEURO: Answers questions appropriately but slightly lethargic. Procedures EGD with pancreatic biopsy. Interventional Radiology liver biopsy. A/P Problem List: (1) Pancreatic mass ICD Code: K86.9 - Disease of pancreas, unspecified (2) Acute kidney injury ICD Code: N17.9 - Acute kidney failure, unspecified Status: Acute (3) Ascites ICD Code: R18.8 - Other ascites Status: Acute (4) Abdominal pain ICD Code: R10.9 - Unspecified abdominal pain Status: Acute (5) Hyperkalemia ICD Code: E87.5 - Hyperkalemia (6) Oliguria ICD Code: R34 - Anuria and oliguria (7) Leukocytosis ICD Code: D72.829 - Elevated white blood cell count, unspecified Assessment and Plan 67 year old female admitted for abdominal pain and found to have pancreatic mass with evidence of metastatic disease. CT abdomen showed 4 cm mass in the body/tail of the pancreas with evidence of metastatic disease. Oncology was consulted and the plan was for eventual port placement for palliative chemo. However, patient has rapidly declined overnight. Renal function has acutely worsened with associated hyperkalemia and oliguria and she is showing signs of end-organ failure including dusky, cool toes, hypotension, and tachycardia. The patient is a DNR and the family is very understanding of the poor prognosis. Hospice is consulted and Dr. Mata has been notified. Pancreatic Mass CT Abdomen shows 4cm mass in body/tail of pancreas with spots on liver that seem solid (not cystic) Likely pancreatic cancer with evidence of mets to liver and kidneys Oncology consulted to guide work up though treatment would be palliative and not curative Plan was for port placement but patient rapidly declining Pain control with morphine 5 mg IV Q4 Ascites Underwent paracentesis 11/25/17, not much fluid removed Cytology showing poorly differentiated carcinoma Acute Renal Dysfunction, Dehydration Renal function continues to decline with associated hyperkalemia and oliguria Bladder scan with ~400 cc Insert Huerta for end of life measures Urinary Tract Infection UTI present on UA but culture growing mixed darci 5 days of Rocephin completed DVT Prophylaxis Lovenox Code status: DNR Discharge Planning D/C to hospice today Problem Qualifiers (1) Ascites: Qualified Codes: R18.0 - Malignant ascites (2) Abdominal pain: Qualified Codes: R10.84 - Generalized abdominal pain Dodie Guevara MD Nov 29, 2017 11:04
[2017-11-29 12:00] VITALS: BP 95/40; PULSE 11; RESP 21; TEMP 97.9; O2SAT 96
--- NOTE | 2017-11-29 20:43 | HHI.DS ---
Discharge Summary Admission Date Nov 24, 2017 at 12:54 Discharge Date: Nov 29, 2017 Admitting Diagnosis probable metastatic pancreatic cancer, acute kidney injury, anasarca (1) Pancreatic mass ICD Code: K86.9 - Disease of pancreas, unspecified (2) Acute kidney injury ICD Code: N17.9 - Acute kidney failure, unspecified Status: Acute (3) Ascites ICD Code: R18.8 - Other ascites Status: Acute (4) Abdominal pain ICD Code: R10.9 - Unspecified abdominal pain Status: Acute (5) Hyperkalemia ICD Code: E87.5 - Hyperkalemia (6) Oliguria ICD Code: R34 - Anuria and oliguria (7) Leukocytosis ICD Code: D72.829 - Elevated white blood cell count, unspecified Procedures EUS with FNA of abdominal mass and EGD - 11/24/17 Brief History - From Admission 67F presents to [place] [facility] today following 3 weeks of marked worsening in her abdominal fullness, associated with intermittent nausea (no vomiting), and loss of appetite. Up until recently she has been spending the winter in [place] where she underwent a work up for non-acute abdominal swelling that was blamed on her hiatal hernia. Prior to that she had no abdominal discomfort. She had PNA last summer and underwent a PET scan to rule out recurrence of a lung granuloma (past hx of), the PET scan did not show any masses. She has a history of hepatitis that occurred when she was 20 years old, though she does not recall which type it was. Family history is positive for renal cancer in her father. Social history is remarkable for approximately 40 pack years of smoking. CBC/BMP: 11/29/17 0715 11/29/17 0715 Significant Findings Laboratory Tests Test 11/27/17 04:11 11/28/17 06:42 11/29/17 07:15 White Blood Count 15.7 TH/MM3 (4.0-11.0) 14.8 TH/MM3 (4.0-11.0) 14.7 TH/MM3 (4.0-11.0) Red Blood Count 3.74 MIL/MM3 (4.00-5.30) 3.78 MIL/MM3 (4.00-5.30) 3.71 MIL/MM3 (4.00-5.30) Hemoglobin 11.3 GM/DL (11.6-15.3) 11.4 GM/DL (11.6-15.3) 11.2 GM/DL (11.6-15.3) Hematocrit 34.2 % (35.0-46.0) 34.4 % (35.0-46.0) 33.8 % (35.0-46.0) Platelet Count 515 TH/MM3 (150-450) 474 TH/MM3 (150-450) Neutrophils (%) (Auto) 81.4 % (16.0-70.0) 83.6 % (16.0-70.0) 84.2 % (16.0-70.0) Lymphocytes (%) (Auto) 6.8 % (9.0-44.0) 4.8 % (9.0-44.0) 5.0 % (9.0-44.0) Monocytes (%) (Auto) 11.5 % (0.0-8.0) 11.4 % (0.0-8.0) 10.5 % (0.0-8.0) Neutrophils # (Auto) 12.8 TH/MM3 (1.8-7.7) 12.4 TH/MM3 (1.8-7.7) 12.4 TH/MM3 (1.8-7.7) Monocytes # (Auto) 1.8 TH/MM3 (0-0.9) 1.7 TH/MM3 (0-0.9) 1.5 TH/MM3 (0-0.9) Blood Urea Nitrogen 76 MG/DL (7-18) 86 MG/DL (7-18) 105 MG/DL (7-18) Creatinine 2.62 MG/DL (0.50-1.00) 3.57 MG/DL (0.50-1.00) 3.89 MG/DL (0.50-1.00) Calcium Level 8.1 MG/DL (8.5-10.1) 8.1 MG/DL (8.5-10.1) Potassium Level 5.3 MEQ/L (3.5-5.1) 5.3 MEQ/L (3.5-5.1) 5.8 MEQ/L (3.5-5.1) Carbon Dioxide Level 16.8 MEQ/L (21.0-32.0) 17.1 MEQ/L (21.0-32.0) 14.2 MEQ/L (21.0-32.0) Estimat Glomerular Filtration Rate 18 ML/MIN (>89) 13 ML/MIN (>89) 12 ML/MIN (>89) Lymphocytes # (Auto) 0.7 TH/MM3 (1.0-4.8) 0.7 TH/MM3 (1.0-4.8) Total Protein 5.6 GM/DL (6.4-8.2) Albumin 2.0 GM/DL (3.4-5.0) Alkaline Phosphatase 124 U/L (45-117) Aspartate Amino Transf (AST/SGOT) 114 U/L (15-37) Chloride Level 108 MEQ/L (98-107) Imaging Last Impressions Abdomen/Pelvis CT 11/25/17 0000 Signed Impressions: Service Date/Time: Saturday, November 25, 2017 15:08 - CONCLUSION: 1. Very stable appearance of the abdomen and pelvis post laparoscopy and biopsy. 2. Pancreatic mass lesion near the junction of the body and tail, dilation of the distal pancreatic duct, probable regional markus mass lesion just cephalad to the pancreas with findings of metastatic disease to the liver and omentum. 3. Stable ascites. Hugo Tapia MD Chest X-Ray 11/24/17 1031 Signed Impressions: Service Date/Time: Friday, November 24, 2017 10:41 - CONCLUSION: Blunting of the right costophrenic angle either related to a tiny effusion or pleural/parenchymal scarring. No acute infiltrate. Cody Doyle Jr., MD Abdomen MRI 11/24/17 0000 Signed Impressions: Service Date/Time: Friday, November 24, 2017 15:27 - CONCLUSION: 1. Study is somewhat limited due to the lack of IV contrast. There is a 5.1 x 4.0 cm pancreatic mass with metastatic lesions to the liver as well as the omentum. A moderate volume of ascites is seen. Cody Doyle Jr., MD PE at Discharge GENERAL: female laying in bed moaning with increased work of breathing. SKIN: Dry, intact, no jaundice. HEENT: Pupils equal and round. CHEST: TTP over anterior chest. HEART: RRR no m/r/g. LUNGS: CTAB without wheezes or crackles. ABDOMEN: Distended and tight. EXTREMITIES: 1+ pitting edema midway up calves. Toes dusky and cool. NEURO: Answers questions appropriately but slightly lethargic. Hospital Course 67 year old female was admitted on 11/24/17 for abdominal pain and distention found to have a 4 cm mass in the body/tail of the pancreas on CT abdomen. There was also evidence of metastatic disease to the liver. GI and oncology were consulted. The patient underwent EUS with FNA of the mass on 11/25 with cytology showing poorly differentiated carcinoma suggestive of adenocarcinoma. The patient was treated with supportive care with IV fluids and pain control but her renal function started to decline. On the morning of 11/29 she acutely decompensated with worsening renal function, oliguria, hypotension, tachycardia, and altered mentation. The patient was a DNR and family agreed to hospice care. The hospice team was consulted and the patient was discharged to the hospice care facility on 11/29. Pt Condition on Discharge: Deteriorating Discharge Disposition: Hospice/Med Facility Discharge Time: > 30 minutes Discharge Instructions DIET: Follow Instructions for: As Tolerated, No Restrictions Activities you can perform: Regular-No Restrictions Dodie Guevara MD Nov 29, 2017 20:43
== END 2017-11-29 15:55 | disposition hospice, inpatient (51) | DRG 436 ==
LOC: NEPE 09:52 → NEDA 12:54 → HCIS 15:57 → N07A 20:31
PROVIDERS: ADMIT Family Medicine; ATTEND Family Medicine
PROC: 0DJ08ZZ Inspection of Upper Intestinal Tract, Via Natural or Artificial Opening Endoscopic (ICD-10-PCS; 2017-11-25)
PROC: 0FBG8ZX Excision of Pancreas, Via Natural or Artificial Opening Endoscopic, Diagnostic (ICD-10-PCS; principal; 2017-11-25 13:29)
DX: C25.2 Malignant neoplasm of tail of pancreas (principal); N17.9 Acute kidney failure, unspecified; R18.0 Malignant ascites; I95.9 Hypotension, unspecified; C78.7 Secondary malignant neoplasm of liver and intrahepatic bile duct; C78.6 Secondary malignant neoplasm of retroperitoneum and peritoneum; R13.10 Dysphagia, unspecified; E86.0 Dehydration; N39.0 Urinary tract infection, site not specified; J98.11 Atelectasis; E87.5 Hyperkalemia; K44.9 Diaphragmatic hernia without obstruction or gangrene; R41.82 Altered mental status, unspecified; R63.0 Anorexia; R00.0 Tachycardia, unspecified; Z51.5 Encounter for palliative care; Z66 Do not resuscitate; Z80.51 Family history of malignant neoplasm of kidney; Z87.891 Personal history of nicotine dependence
CPT/HCPCS: 43242; 71045; 74176; 74181; 80048; 80053; 81001; 82105; 82378; 83605; 83690; 85025; 85610; 85730; 86301; 87086; 88173; 88305; 93005; 96374; 96375; J0696; J1644; J1940; J2270; J2405; J3010; J7030; J7050; J7120